=== PATIENT | female | born 1950 | race Caucasian/White ===

== ENCOUNTER → 2016-11-29 | Outpatient (CLI) | payer MEDICARE, OTHER ==
--- NOTE | 2016-11-29 15:59 | XR ---
EXAMINATION TYPE: XR chest 2V DATE OF EXAM: 11/29/2016 3:21 PM COMPARISON: Prior chest x-ray 01 Mar 2012 HISTORY: Cough TECHNIQUE: Frontal and lateral views of the chest are obtained. FINDINGS: Patient appears rotated. The heart is small. Pulmonary vascularity and reid are stable. Guzman rgical clips present in the upper abdomen. No evident pneumonia, pneumothorax, or pleural effusion. P rominent lung volume may be indicative of underlying COPD. Apical pleural thickening is noted. IMPRESSION: No acute cardiopulmonary process.
== END | disposition home or self-care (01) ==
LOC: RADXRMAIN 15:05
PROVIDERS: ATTEND Physician Assistant
DX: R05 Cough (principal)
CPT/HCPCS: 71020

== ENCOUNTER → 2017-01-22 | Outpatient (CLI) | payer MEDICARE, OTHER ==
--- NOTE | 2017-01-22 10:11 | US ---
EXAMINATION TYPE: US renals and bladder DATE OF EXAM: 01/22/2017 9:31 AM COMPARISON: CT abdomen and pelvis November 06, 2011. CLINICAL HISTORY: R33.9 urinary retention. Difficulty urinating, back pain, left nephrectomy 2006 (ca ncer) EXAM MEASUREMENTS: Right Kidney: 12.3 x 5.3 x 5.5 cm Left Kidney: Surgically absent Post Void Residual Volume: 13.3 mL Right Kidney: no evidence of hydronephrosis or mass Left Kidney: Surgically absent Bladder: appears wnl Bilateral Jets seen: Right jet seen Normal Post Void Residual: yes There is no evidence for hydronephrosis at this point in time in the remnant right kidney. No shadow ing nephrolithiasis is seen. No suspicious solid or cystic renal masses are identified. The urinary bladder is anechoic. Distal right ureter jet is seen. Scanning of left renal fossa shows no suspicio us recurrent mass or neoplasm. IMPRESSION: Absent left kidney redemonstrated. No suspicious finding is seen to account for patient's symptoms
--- NOTE | 2017-01-22 10:41 | ECHOF ---
Referral Reason:R00.00 tachycardia MEASUREMENTS -------- HEIGHT: 165.1 cm WEIGHT: 56.7 kg BP: IVSd: 1.0 cm (0.6 - 1.1) LVIDd: 3.6 cm (3.9 - 5.3) LVPWd: 0.9 cm (0.6 - 1.1) IVSs: 1.5 cm LVIDs: 1.5 cm LVPWs: 1.6 cm Ao Diam: 3.2 cm (2.0 - 3.7) AV Cusp: 1.7 cm (1.5 - 2.6) LA Diam: 3.3 cm (2.7 - 3.8) MV EXCURSION: 14.924 mm (> 18.000) MV EF SLOPE: 140 mm/s (70 - 150) EPSS: 0.8 cm MV E Bry: 0.75 m/s MV DecT: 254 ms MV A Bry: 0.91 m/s MV E/A Ratio: 0.83 RAP: 5.00 mmHg RVSP: 59.63 mmHg FINDINGS -------- Sinus rhythm with extra systolic beats. This was a technically good study. The left ventricular size is normal. Left ventricular wall thickness is normal. Overall left ventricular systolic function is normal with, an EF between 55 - 60 %. The right ventricle is normal in size and function. The left atrium is normal in size. The right atrium is normal in size. The aortic valve is trileaflet, and appears structurally normal. No aortic stenosis or regurgitation. The mitral valve leaflets are mildly thickened. [id number] mitral regurgitation is present. Moderate tricuspid regurgitation present. There is moderate pulmonary hypertension. The right ventricular systolic pressure, as measured by Doppler, is 59.63mmHg. There is no pulmonic regurgitation present. The aortic root size is normal. There is no pericardial effusion. CONCLUSIONS -------- 1. Sinus rhythm with extra systolic beats. 2. There is moderate pulmonary hypertension. 3. There is no pulmonic regurgitation present. 4. The aortic root size is normal. 5. There is no pericardial effusion. 6. This was a technically good study. 7. Left ventricular wall thickness is normal. 8. Overall left ventricular systolic function is normal with, an EF between 55 - 60 %. 9. The left atrium is normal in size. 10. The aortic valve is trileaflet, and appears structurally normal. No aortic stenosis or regurgitation. 11. The mitral valve leaflets are mildly thickened. 12. [id number] mitral regurgitation is present. 13. Moderate tricuspid regurgitation present. VEHICLE DAMAGE APPRAISER: Penny Sierra RDCS
== END | disposition home or self-care (01) ==
LOC: RADUSMAIN 09:01
PROVIDERS: ATTEND Family Medicine
DX: R33.9 Retention of urine, unspecified (principal); R00.0 Tachycardia, unspecified; Z90.5 Acquired absence of kidney
CPT/HCPCS: 76770; 93306

== ENCOUNTER → 2017-02-20 | Outpatient (CLI) | payer MEDICARE, OTHER ==
--- NOTE | 2017-02-20 21:28 | XR ---
EXAMINATION TYPE: XR lumbar spine 2 or 3V DATE OF EXAM: 02/20/2017 5:01 PM COMPARISON: NONE HISTORY: Low back pain TECHNIQUE: 3 view lumbar spine FINDINGS: There 5 lumbar-type bodies. Pedicles are intact. There is a grade 1 approaching grade 2 spo ndylolisthesis of L5 anteriorly on S1. There is loss of the L5-S1 disc height. Multiple surgical clip s are present. IMPRESSION: 1. Grade 1 to grade 2 spondylolisthesis of L5 anteriorly on S1. 2. Degenerative changes L5-S1
== END ==
LOC: RADXRMAIN 16:39
PROVIDERS: ATTEND Physician Assistant
DX: M43.16 Spondylolisthesis, lumbar region (principal); M47.897 Other spondylosis, lumbosacral region
CPT/HCPCS: 72100

== ENCOUNTER 2017-03-01 10:29 | Emergency (ER) | payer MEDICARE, OTHER ==
[2017-03-01 10:38] VITALS: RESP 18; TEMP 97.2
[2017-03-01 11:32] LABS: Basophils % (A) 0 %; CH 30.3; CHCM 32.8; Eosinophils # (A) 0.1 k/uL (0-0.7); Eosinophils % (A) 1 %; HCT 38.6 % (34.0-46.0); HDW 2.66; HGB 12.6 gm/dL (11.4-16.0); Luc # (Auto) 0.08; Luc % (Auto) 2; Lymphocytes # (A) 0.8 k/uL (1.0-4.8); Lymphocytes % (A) 14 %; MCH 30.4 pg (25.0-35.0); MCHC 32.7 g/dL (31.0-37.0); MCV 92.9 fL (80.0-100.0); Mean Platelet Volume 8.2; Monocytes # (A) 0.4 k/uL (0-1.0); Monocytes % (A) 8 %; Neutrophils # (A) 4.2 k/uL (1.3-7.7); Neutrophils % (A) 76 %; RBC 4.16 m/uL (3.80-5.40); RDW 15.2 % (11.5-15.5); WBC 5.5 k/uL (3.8-10.6); WBC (Perox) 5.27
[2017-03-01 11:50] LABS: Anion Gap 16 mmol/L; Blood Urea Nitrogen 10 mg/dL (7-17); Calcium 9.8 mg/dL (8.4-10.2); Carbon Dioxide 22 mmol/L (22-30); Chloride 94 mmol/L (98-107); Glucose 189 mg/dL (74-99); Non-African American GFR(MDRD) >60 (>60 ml/min/1.73 sqM); Potassium 4.4 mmol/L (3.5-5.1); Sodium 132 mmol/L (137-145)
--- NOTE | 2017-03-01 12:22 | ED ---
General Adult HPI - General Chief complaint: Urogenital Stated complaint: back pain Source: patient Mode of arrival: ambulatory Limitations: no limitations - History of Present Illness Initial comments: 66-year-old female with past medical history of renal cancer, DM, HLD , RA, breast surgery, section, hernia repair, orthopedic surgery, left nephrectomy, Raciel fundoplasty presenting for evaluation of right lower back pain and suprapubic abdominal pain with urinary retention. She states that she has had these symptoms since late November and that they have been present continuously since then. She has seen her primary care physician Dr. Wilson and her urologist Dr. Magallon who have evalauted her with renal US and lumbar xrays which have shown no cause for her continued symptoms. She states her symptoms are no worse now than they have been in the last few weeks. She describes the urinary retention as improving with straining and bearing down. Abdominal pain is only present when she hasn't urinated in a while and improves with voiding. She has tried OTC medications for her back pain without relief. She denies associated dysuria or hematuria. - Related Data Home Medications Medication Instructions Recorded Confirmed Methotrexate Sodium [Methotrexate] 15 mg PO MO 03/04/14 03/01/17 Multivitamins, Thera [Multivitamin] 1 tab PO DAILY 07/30/16 03/01/17 sitaGLIPtin [Januvia] 100 mg PO PC-SUPPER 07/30/16 03/01/17 Atorvastatin Calcium [Lipitor] 20 mg PO HS 03/01/17 03/01/17 Cyclobenzaprine [Flexeril] 10 mg PO TID PRN 03/01/17 03/01/17 metFORMIN HCL [metFORMIN HCL] 1,000 mg PO BID 03/01/17 03/01/17 Previous Rx's Medication Instructions Recorded HYDROcodone/APAP 5-325MG [[place] 1 - 2 tab PO Q6HR PRN #20 tab 03/01/17 5-325] Allergies Allergy/AdvReac Type Severity Reaction Status Date / Time No Known Allergies Allergy Verified 03/01/17 11:49 Review of Systems ROS Statement: Those systems with pertinent positive or pertinent negative responses have been documented in the HPI. ROS Other: All systems not noted in ROS Statement are negative. Constitutional: Denies: fever, chills Eyes: Denies: eye pain, eye discharge ENT: Denies: ear pain, throat pain Respiratory: Denies: cough, dyspnea Cardiovascular: Denies: chest pain, palpitations Endocrine: Denies: fatigue, heat or cold intolerance, polydipsia Gastrointestinal: Reports: abdominal pain. Denies: nausea, vomiting, diarrhea, constipation, hematemesis, melena, hematochezia Genitourinary: Reports: other (urinary retention). Denies: urgency, dysuria, frequency, hematuria, discharge Musculoskeletal: Reports: back pain. Denies: joint swelling, arthralgia, myalgia Skin: Denies: rash, lesions Neurological: Denies: headache, weakness Psychiatric: Denies: anxiety, depression Hematological/Lymphatic: Denies: easy bleeding, easy bruising Past Medical History Past Medical History: Cancer, Diabetes Mellitus, Hyperlipidemia, Rheumatoid Arthritis (RA) Additional Past Medical History / Comment(s): LEFT KIDNEY CANCER-2006 History of Any Multi-Drug Resistant Organisms: None Reported Past Surgical History: Breast Surgery, Section, Hernia Repair, Orthopedic Surgery Additional Past Surgical History / Comment(s): LEFT KIDNEY REMOVED,. RACIEL FUNDOPLASTY. RT BREAST BX. LT CTR. COLONOSCOPY. EGD Past Anesthesia/Blood Transfusion Reactions: No Reported Reaction, Motion Sickness Past Psychological History: No Psychological Hx Reported Smoking Status: Never smoker Past Alcohol Use History: None Reported Additional Past Alcohol Use History / Comment(s): QUIT SMOKING IN 1995, SMOKED FOR 29 YRS, 1PPD. Past Drug Use History: None Reported - Past Family History Father Family Medical History: Cancer Additional Family Medical History / Comment(s): Lung Brother(s) Family Medical History: Cancer Additional Family Medical History / Comment(s): Lung General Exam Limitations: no limitations General appearance: alert, in no apparent distress Head exam: Present: atraumatic, normocephalic, normal inspection Eye exam: Present: normal appearance, PERRL, EOMI. Absent: scleral icterus, conjunctival injection, periorbital swelling ENT exam: Present: normal exam, mucous membranes moist Neck exam: Present: normal inspection. Absent: tenderness, meningismus, lymphadenopathy Respiratory exam: Present: normal lung sounds bilaterally. Absent: respiratory distress, wheezes, rales, rhonchi, stridor Cardiovascular Exam: Present: regular rate, normal rhythm, normal heart sounds. Absent: systolic murmur, diastolic murmur, rubs, gallop, clicks GI/Abdominal exam: Present: soft, tenderness, normal bowel sounds, other ( Suprapubic abdominal tenderness). Absent: distended, guarding, rebound, rigid Rectal exam: Present: deferred Extremities exam: Present: normal inspection, full ROM, normal capillary refill. Absent: tenderness, pedal edema, joint swelling, calf tenderness Back exam: Present: full ROM, CVA tenderness (R), paraspinal tenderness. Absent : normal inspection, rash noted Neurological exam: Present: alert, oriented X3, CN II-XII intact Psychiatric exam: Present: normal affect, normal mood Skin exam: Present: warm, dry, intact, normal color. Absent: rash Course Vital Signs 03/01/17 03/01/17 10:34 14:11 Temperature 97.2 F L Pulse Rate 127 H 120 H Respiratory 18 18 Rate Blood Pressure 118/70 137/68 O2 Sat by Pulse 99 97 Oximetry Medical Decision Making - Medical Decision Making 66-year-old female with past medical history of left nephrectomy due to renal cancer presented for evaluation of right lower back pain and suprapubic abdominal pain due to urinary retention. She states she's been having these symptoms for the last 3 months, been worked up by both her urologist and primary care physician, and has had no significant changes since. She states her symptoms are no worse now than they have been over the last few weeks but she is just tired of the pain. On physical examination she does have tenderness to palpation on the right paraspinal lumbar back without radiation. There is no overlying skin changes. Bladder scan reveals 137 mL of urine. Only mild suprapubic tenderness but abdomen is soft without peritoneal signs of guarding, rigidity, or rebound. History and physical exam are not consistent with a kidney stone however concern for urinary tract infection versus urethral obstruction remains on differential. We'll obtain UA, labs, and CT abdomen and pelvis. 12:18 PM Discussed pt with urologist Dr. Magallon who was updated on the status of his pt and agreed with plan to work up and discharge if no significant abnormalities identified. Labs revealed no significant abnormalities. Urine was negative for hematuria or UTI. CT abdomen and pelvis with IV contrast showed new multi lobulated masses measuring up to 3.5 cm in the left nephrectomy surgical bed skin portions of the pancreas and creating abnormal pancreatic enhancement and peripancreatic fat stranding likely reactive pancreatitis. There are also new multiple hypoattenuated ill-defined hepatic lesions that may represent visceral metastasis. A 2.2 cm periumbilical soft tissue mass may correspond to additional sedative metastasis or lymphadenopathy. There is also mild prolapse of the pelvic floor with a small amount of pelvic free fluid. These findings were discussed with Dr. Wilson's PA who agreed with plan to discharge and follow up on Saturday in the office. Results discussed with the patient and through shared decision making it was determined that she would be discharged with pain control and instructions to follow-up with her primary care physician and that her PCPs PA had already been informed of results and would be expecting her on Saturday. She was further advised to return to this facility over the weekend if her symptoms should worsen or persist. The patient acknowledged an understanding of this information and agreed with this plan of care. - Lab Data Result diagrams: 03/01/17 11:20 03/01/17 11:20 Lab Results 03/01/17 03/01/17 03/01/17 Range/Units 11:20 11:20 12:36 WBC 5.5 (3.8-10.6) k/uL RBC 4.16 (3.80-5.40) m/uL Hgb 12.6 (11.4-16.0) gm/dL Hct 38.6 (34.0-46.0) % MCV 92.9 (80.0-100.0) fL MCH 30.4 (25.0-35.0) pg MCHC 32.7 (31.0-37.0) g/dL RDW 15.2 (11.5-15.5) % Plt Count 181 (150-450) k/uL Neutrophils % 76 % Lymphocytes % 14 % Monocytes % 8 % Eosinophils % 1 % Basophils % 0 % Neutrophils # 4.2 (1.3-7.7) k/uL Lymphocytes # 0.8 L (1.0-4.8) k/uL Monocytes # 0.4 (0-1.0) k/uL Eosinophils # 0.1 (0-0.7) k/uL Basophils # 0.0 (0-0.2) k/uL Sodium 132 L (137-145) mmol/L Potassium 4.4 (3.5-5.1) mmol/L Chloride 94 L (98-107) mmol/L Carbon Dioxide 22 (22-30) mmol/L Anion Gap 16 mmol/L BUN 10 (7-17) mg/dL Creatinine 0.70 (0.52-1.04) mg/dL Est GFR (MDRD) Af Amer >60 (>60 ml/min/1.73 sqM) Est GFR (MDRD) Non-Af >60 (>60 ml/min/1.73 sqM) Glucose 189 H (74-99) mg/dL Calcium 9.8 (8.4-10.2) mg/dL Urine Color Yellow Urine Appearance Clear (Clear) Urine pH 6.0 (5.0-8.0) Ur Specific [place] 1.007 (1.001-1.035) Urine Protein Trace H (Negative) Urine Glucose (UA) 1+ H (Negative) Urine Ketones Negative (Negative) Urine Blood Negative (Negative) Urine Nitrite Negative (Negative) Urine Bilirubin Negative (Negative) Urine Urobilinogen <2.0 (<2.0) mg/dL Ur Leukocyte Esterase Trace H (Negative) Urine WBC 2 (0-5) /hpf Ur Squamous Epith Cells <1 (0-4) /hpf Hyaline Casts 3 H (0-2) /lpf Urine Mucus Rare H (None) /hpf Disposition Clinical Impression: Intraabdominal mass, Urinary retention Disposition: HOME SELF-CARE Condition: Stable Additional Instructions: Please use medication as discussed. Please follow up with family doctor if symptoms have not improved over the next two days. Please return to the emergency room if your symptoms increase or worsen or for any other concerns. Prescriptions: HYDROcodone/APAP 5-325MG [[place] 5-325] 1 - 2 tab PO Q6HR PRN #20 tab PRN Reason: Analgesia Time of Disposition: 14:14
[2017-03-01] MEDS ORDERED: MORPHINE SULFATE 4 MG/ML SYRINGE IVP STA (12:23)
[2017-03-01] MEDS ORDERED: RX INFO: IV CONTRAST WAS GIVEN 1 EACH MISC MISCELLANE PRN (12:23)
[2017-03-01 13:22] LABS: Appearance,Urine Clear (Clear); Bilirubin,Urine Negative (Negative); Glucose,Urine (UA) 1+ (Negative); Ketones,Urine Negative (Negative); Leukocyte Esterase,Urine Trace (Negative); Mucus,Urine Rare /hpf; Nitrite,Urine Negative (Negative); Particle Count 1195; Protein,Urine Trace (Negative); Specific Gravity,Urine 1.007 (1.001-1.035); Squamous Epithelial Cell,Urine <1 /hpf (0-4); UA Billing (MACRO vs. MICRO) MICRO; Urobilinogen,Urine <2.0 mg/dL (<2.0); WBC,Urine 2 /hpf (0-5)
--- NOTE | 2017-03-01 13:34 | CT ---
EXAMINATION TYPE: CT abdomen pelvis w con DATE OF EXAM: 03/01/2017 1:05 PM HISTORY: Right-sided abdominal pain. History of left nephrectomy and adrenalectomy. TECHNIQUE: CT scan of the abdomen and pelvis is performed per protocol without intravenous contrast. COMPARISON: 04/25/2011 FINDINGS: LUNG BASES: Moderate centrilobular emphysematous changes are seen. No pleural effusion or focal conso lidation. Small hiatal hernia is present with surgical clips at the gastroesophageal junction. LIVER/GB: Multiple new hypoattenuated hepatic lesions are seen the most pronounced within segment 8 a t the hepatic dome measuring approximately 1.1 cm. This is not compatible with a simple cyst. Additio jessica other scattered hepatic hypodensities are seen in the subcapsular left hepatic lobe on image 13 of 94 in the subcapsular right hepatic lobe posteriorly on image 21 of 94, and along the gallbladder fossa. Additional subcapsular lesion is seen within the right hepatic lobe on image 18 of 94. Hepati c contour is smooth and there is no capsular retraction.. PANCREAS: No significant abnormality is seen. SPLEEN: Benign calcified splenic lesion is seen. ADRENALS: No significant abnormality is seen within the right adrenal gland. The left adrenal gland i s surgically absent. KIDNEYS: Within the left nephrectomy bed, obscuring the distal body and tail of the pancreas there is a new centrally necrotic mass measuring at least 2.5 x 2.3 cm. Superior to this there is also soft t issue attenuated density that measures up to 3.2 x 3.5 cm and also obscures portions of the pancreas. There is abnormal enhancement of the distal pancreatic body and tail with surrounding inflammatory f at stranding. These findings are new from the prior exam of 04/25/2011. Stable right midpole posterior cortical lesion is similar in appearance the prior exam of 04/25/2011 a nd favored to be benign although too small to accurately characterize. Additional smaller cortically based lesion is also similar in appearance to the prior exam. BOWEL: No significant abnormality is seen. Tubular focus of air is thought to reside within a small bowel loop. Sigmoid diverticula are evident without pericolonic fat stranding or changes of diverticu litis. UTERUS/ADNEXA: No gross abnormality seen. LYMPH NODES: No greater than 1cm abdominal or pelvic lymph nodes are appreciated. OSSEOUS STRUCTURES: No suspicious osseous lesion is seen. Mild S-shaped scoliotic curvature of the th oracolumbar spine is noted. Degenerative changes are present of the thoracolumbar and lumbosacral spi ne. OTHER: 2.2 cm periumbilical soft tissue mass is noted, possibly site of metastasis and/or lymphadenop athy. Mild pelvic floor prolapse is noted. Findings were discussed with Dr. Davis (ER physician) at 1322 PM on 03/01/2017. IMPRESSION: 1. New multilobulated mass measuring up to 3.5 cm in the left nephrectomy surgical bed obscuring port ions of the pancreas and creating abnormal pancreatic enhancement and peripancreatic fat stranding li breonna reactive pancreatitis. 2. Multiple new hypoattenuated ill-defined hepatic lesions that may represent visceral metastasis. Fu rther characterization with dynamic enhanced CT or MR could be performed if clinically indicated. 3. Small hiatal hernia. 5. 2.2 cm periumbilical soft tissue mass that may correspond to additional site of metastasis and/or lymphadenopathy. 6. Stable probable right cortical renal cysts. 7. Tubular central air favored to be within bowel lumen although the bowel is decompressed. 8. Small amount of pelvic free fluid. 9. Mild prolapse of the pelvic floor. 10. Partial visualization of moderate emphysematous changes.
[2017-03-01 14:11] VITALS: BP 137/68; PULSE 120
== END 2017-03-01 14:27 | disposition home or self-care (01) ==
LOC: EC 10:29
DX: R19.05 Periumbilic swelling, mass or lump (principal); R33.9 Retention of urine, unspecified; E11.9 Type 2 diabetes mellitus without complications; E78.5 Hyperlipidemia, unspecified; M06.9 Rheumatoid arthritis, unspecified; Z87.891 Personal history of nicotine dependence; Z79.899 Other long term (current) drug therapy; Z79.84 Long term (current) use of oral hypoglycemic drugs; Z85.528 Personal history of other malignant neoplasm of kidney; Z80.1 Family history of malignant neoplasm of trachea, bronchus and lung; Z90.5 Acquired absence of kidney
CPT/HCPCS: 51798; 36415; 80048; 85025; 81001; 74177; 99284; 96374; J2270; Q9967

== ENCOUNTER → 2017-03-12 | Outpatient (CLI) | payer MEDICARE, OTHER ==
[2017-03-12 11:46] LABS: Blood Urea Nitrogen 13 mg/dL (7-17); Non-African American GFR(MDRD) >60 (>60 ml/min/1.73 sqM)
--- NOTE | 2017-03-12 12:39 | CT ---
EXAMINATION TYPE: CT chest w con DATE OF EXAM: 03/12/2017 12:32 PM COMPARISON: CT abdomen pelvis 03/01/2017 HISTORY: Patient had recent abnormal prior CT of the abdomen showing liver lesions. Patient has no c hest complaints at time of study. CT DLP: 127.4 mGycm Automated exposure control for dose reduction was used. CONTRAST: CT scan of the chest is performed with IV Contrast, patient injected with 80 mL of Visipaque 320. FINDINGS: LUNGS: The lungs are grossly clear, there is no concerning parenchymal mass or nodule identified. M oderate emphysematous changes identified. There is no pleural effusion or pneumothorax seen. The tra cheobronchial tree is patent. MEDIASTINUM: There are no greater than 1 cm hilar or mediastinal lymph nodes. No pericardial effusi on is seen. Thoracic aorta is of normal caliber. The heart is not enlarged. UPPER ABDOMEN: Soft tissue mass arising from the previous or adjacent pancreas is again noted. Severa l hepatic lesion suspicious for metastatic disease. Left-sided. OTHER: No additional significant abnormality is seen. IMPRESSION: 1. Moderate emphysematous changes. No evidence of metastatic disease to the chest.
--- NOTE | 2017-03-12 15:36 | NM ---
EXAMINATION TYPE: NM bone scan whole body DATE OF EXAM: 03/12/2017 2:56 PM COMPARISON: NONE HISTORY: C78.7 liver ca Delayed whole-body scanning was performed following the injection of 25.8 mCi Tc 99m MDP. Images acq uired 3 hours post injection. FINDINGS: There is intense increased radiotracer accumulation noted to involve the proximal left TMJ or left ma stoid region and the left mid cervical spine which are nonspecific. Radiographic correlation is advis ed. There is focal increased uptake involving the right sternal manubrial joint as well as the bilate ral shoulders are likely degenerative in nature. There is mild degenerative uptake about the thoracic spine and lower lumbar spine. Mild degenerative uptake about the hips. No additional intense foci of increased radiotracer accumulation. IMPRESSION: There is intense increased radiotracer accumulation noted to involve the proximal left TMJ or left ma stoid region and the left mid cervical spine which are nonspecific. Radiographic correlation is advis ed.
== END | disposition home or self-care (01) ==
LOC: RADNMMAIN 10:36
PROVIDERS: ATTEND Internal Medicine Hematology & Oncology
DX: J43.9 Emphysema, unspecified (principal); R94.8 Abnormal results of function studies of other organs and systems; C78.7 Secondary malignant neoplasm of liver and intrahepatic bile duct
CPT/HCPCS: 82565; 84520; 71260; 36415; 78306; A9503; Q9967

== ENCOUNTER 2017-03-31 00:06 | Inpatient (IN) | payer MEDICARE, OTHER ==
[2017-03-31] MEDS ORDERED: DILTIAZEM 125 MG in SODIUM CHLORIDE 0.9% 100 ML IV STA (00:30)
[2017-03-31] MEDS ORDERED: SODIUM CHLORIDE 0.9% 1,000 ML IV ONE ×2 (00:40→02:00)
[2017-03-31] MEDS ORDERED: MORPHINE SULFATE 4 MG/ML SYRINGE IV STA (00:41)
[2017-03-31] MEDS ORDERED: ONDANSETRON 4 MG/2 ML VIAL IVP STA (00:41)
--- NOTE | 2017-03-31 00:50 | ED ---
General Adult HPI - General Chief complaint: Recheck/Abnormal Lab/Rx Stated complaint: low BP Time Seen by Provider: 03/31/17 00:30 Source: patient, family Mode of arrival: wheelchair Limitations: no limitations - History of Present Illness Initial comments: This patient is a 67-year-old woman who presents with the complaint that she is not feeling well, including a number of symptoms. She states that she has been having increasing abdominal pain and believes that this is related to the cancer that she was diagnosed with an February. She states that she was diagnosed with pancreatic cancer then. The patient also feels like she needs to have a bowel movement but has not been able to hold bowel movement since a small one this morning and she does continue to pass flatus. The patient is complaining of nausea and has not been able to take much in way of fluids or any food today. She also feels extremely weak and fatigued and believes she is getting dehydrated. Patient has not noted a fever. She is a little bit short of breath but denies change in cough or chest pain. She has noted some palpitations and has felt lightheaded but no syncope. -: days(s) Location: abdomen - Related Data Home Medications Medication Instructions Recorded Confirmed Methotrexate Sodium [Methotrexate] 15 mg PO MO 03/04/14 03/01/17 Multivitamins, Thera [Multivitamin] 1 tab PO DAILY 07/30/16 03/01/17 sitaGLIPtin [Januvia] 100 mg PO PC-SUPPER 07/30/16 03/01/17 Atorvastatin Calcium [Lipitor] 20 mg PO HS 03/01/17 03/01/17 Cyclobenzaprine [Flexeril] 10 mg PO TID PRN 03/01/17 03/01/17 metFORMIN HCL [metFORMIN HCL] 1,000 mg PO BID 03/01/17 03/01/17 Previous Rx's Medication Instructions Recorded HYDROcodone/APAP 5-325MG [[place] 1 - 2 tab PO Q6HR PRN #20 tab 03/01/17 5-325] Allergies Allergy/AdvReac Type Severity Reaction Status Date / Time No Known Allergies Allergy Verified 03/01/17 11:49 Review of Systems ROS Statement: Those systems with pertinent positive or pertinent negative responses have been documented in the HPI. ROS Other: All systems not noted in ROS Statement are negative. Constitutional: Denies: fever Respiratory: Reports: dyspnea. Denies: cough, wheezes Cardiovascular: Reports: palpitations. Denies: chest pain, orthopnea, edema, syncope Gastrointestinal: Reports: abdominal pain, nausea, diarrhea, constipation. Denies: vomiting, melena, hematochezia Genitourinary: Denies: dysuria, hematuria Musculoskeletal: Denies: back pain Skin: Denies: rash Neurological: Denies: headache, weakness, numbness Past Medical History Past Medical History: Cancer, Diabetes Mellitus, Hyperlipidemia, Rheumatoid Arthritis (RA) Additional Past Medical History / Comment(s): LEFT KIDNEY CANCER-2006 History of Any Multi-Drug Resistant Organisms: None Reported Past Surgical History: Breast Surgery, Section, Hernia Repair, Orthopedic Surgery Additional Past Surgical History / Comment(s): LEFT KIDNEY REMOVED,. RACIEL FUNDOPLASTY. RT BREAST BX. LT CTR. COLONOSCOPY. EGD Past Anesthesia/Blood Transfusion Reactions: No Reported Reaction, Motion Sickness Past Psychological History: No Psychological Hx Reported Smoking Status: Never smoker Past Alcohol Use History: None Reported Additional Past Alcohol Use History / Comment(s): QUIT SMOKING IN 1995, SMOKED FOR 29 YRS, 1PPD. Past Drug Use History: None Reported - Past Family History Father Family Medical History: Cancer Additional Family Medical History / Comment(s): Lung Brother(s) Family Medical History: Cancer Additional Family Medical History / Comment(s): Lung General Exam Limitations: no limitations General appearance: alert, cachectic, other (Jaundiced) Head exam: Present: atraumatic, normocephalic Eye exam: Present: normal appearance, scleral icterus. Absent: conjunctival injection ENT exam: Present: mucous membranes dry Neck exam: Present: normal inspection, full ROM Respiratory exam: Present: normal lung sounds bilaterally. Absent: respiratory distress, wheezes, rales, rhonchi, stridor Cardiovascular Exam: Present: tachycardia, irregular rhythm, normal heart sounds. Absent: systolic murmur, diastolic murmur, rubs, gallop GI/Abdominal exam: Present: soft, tenderness, guarding, diminished bowel sounds. Absent: distended, rebound, rigid, mass, pulsatile mass, hernia Extremities exam: Present: normal inspection, normal capillary refill. Absent: pedal edema, calf tenderness Back exam: Present: normal inspection. Absent: CVA tenderness (R), CVA tenderness (L) Neurological exam: Present: alert Skin exam: Present: warm, dry, intact, other (jaundiced). Absent: rash Course Vital Signs 03/31/17 03/31/17 03/31/17 00:08 00:30 00:32 Temperature 97.5 F L Pulse Rate 123 H 146 H 149 H Pulse Rate [ Right Pulse Oximetery] Respiratory 18 20 20 Rate Blood Pressure 83/52 115/63 115/63 Blood Pressure [Left Arm Supine] O2 Sat by Pulse 98 99 97 Oximetry 03/31/17 03/31/17 03/31/17 00:56 01:02 01:05 Temperature Pulse Rate 123 H 137 H 129 H Pulse Rate [ Right Pulse Oximetery] Respiratory 20 20 20 Rate Blood Pressure 115/66 105/55 125/57 Blood Pressure [Left Arm Supine] O2 Sat by Pulse 96 92 L 99 Oximetry 03/31/17 03/31/17 03/31/17 01:15 01:27 01:42 Temperature Pulse Rate 63 90 74 Pulse Rate [ Right Pulse Oximetery] Respiratory 20 18 18 Rate Blood Pressure 94/46 89/53 84/47 Blood Pressure [Left Arm Supine] O2 Sat by Pulse 100 98 100 Oximetry 03/31/17 03/31/17 03/31/17 02:27 03:21 03:31 Temperature 98.4 F 97.1 F L Pulse Rate 75 114 H Pulse Rate [ 88 Right Pulse Oximetery] Respiratory 18 18 18 Rate Blood Pressure 131/57 113/79 Blood Pressure 128/60 [Left Arm Supine] O2 Sat by Pulse 100 94 L 100 Oximetry 03/31/17 03/31/17 03:56 04:33 Temperature Pulse Rate 101 H 100 Pulse Rate [ Right Pulse Oximetery] Respiratory 18 18 Rate Blood Pressure 116/56 136/57 Blood Pressure [Left Arm Supine] O2 Sat by Pulse 98 93 L Oximetry EKG Findings - EKG Results: EKG: interpreted by ERMD, normal axis, normal QRS, normal ST/T EKG shows: tachycardia (Rate approximately 151 bpm), atrial fibrillation Medical Decision Making - Medical Decision Making Case discussed with Dr. Mims who is covering for [facility]. The patient will be admitted with broad-spectrum coverage for the sepsis and the pancytopenia. Consults also requested for infectious disease, surgery, and will have cardiology consultation for what appears to be new onset atrial fibrillation with rapid ventricular rate. Neupogen also started. - Lab Data Result diagrams: 03/31/17 00:22 03/31/17 00:22 Lab Results 03/31/17 03/31/17 03/31/17 Range/Units 00:22 00:22 00:22 WBC 0.7 L* (3.8-10.6) k/uL RBC 2.93 L (3.80-5.40) m/uL Hgb 9.2 L D (11.4-16.0) gm/dL Hct 26.5 L (34.0-46.0) % MCV 90.3 (80.0-100.0) fL MCH 31.5 (25.0-35.0) pg MCHC 34.9 (31.0-37.0) g/dL RDW 16.9 H (11.5-15.5) % Plt Count 70 L D (150-450) k/uL Differential Comment Manual Slide Review Performed Large Platelets Present Poikilocytosis (manual Present Anisocytosis Slight Target Cells Present PT (9.0-12.0) sec INR (<1.1) APTT (22.0-30.0) sec Sodium 129 L (137-145) mmol/L Potassium 4.5 (3.5-5.1) mmol/L Chloride 94 L (98-107) mmol/L Carbon Dioxide 20 L (22-30) mmol/L Anion Gap 15 mmol/L BUN 18 H (7-17) mg/dL Creatinine 0.80 (0.52-1.04) mg/dL Est GFR (MDRD) Af Amer >60 (>60 ml/min/1.73 sqM) Est GFR (MDRD) Non-Af >60 (>60 ml/min/1.73 sqM) Glucose 164 H (74-99) mg/dL POC Glucose (mg/dL) (75-99) mg/dL POC Glu Multiskill Operator ID Plasma Lactic Acid Gaurav (0.7-2.0) mmol/L Calcium 8.4 (8.4-10.2) mg/dL Magnesium 1.8 (1.6-2.3) mg/dL Total Bilirubin 17.6 H* (0.2-1.3) mg/dL AST 979 H (14-36) U/L ALT 423 H (9-52) U/L Alkaline Phosphatase 746 H (38-126) U/L Total Creatine Kinase 41 (30-135) U/L CK-MB (CK-2) 0.3 (0.0-2.4) ng/mL CK-MB (CK-2) Rel Index 0.7 Troponin I <0.012 (0.000-0.034) ng/mL Total Protein 5.6 L (6.3-8.2) g/dL Albumin 2.9 L (3.5-5.0) g/dL Amylase (30-110) U/L Lipase (23-300) U/L TSH 0.077 L (0.465-4.680) mIU/L Urine Color Urine Appearance (Clear) Urine pH (5.0-8.0) Ur Specific [place] (1.001-1.035) Urine Protein (Negative) Urine Glucose (UA) (Negative) Urine Ketones (Negative) Urine Blood (Negative) Urine Nitrite (Negative) Urine Bilirubin (Negative) Urine Urobilinogen (<2.0) mg/dL Ur Leukocyte Esterase (Negative) Urine RBC (0-5) /hpf Urine WBC (0-5) /hpf Ur Squamous Epith Cells (0-4) /hpf Amorphous Sediment (None) /hpf Urine Bacteria (None) /hpf Urine Mucus (None) /hpf 03/31/17 03/31/17 03/31/17 Range/Units 00:22 00:22 00:22 WBC (3.8-10.6) k/uL RBC (3.80-5.40) m/uL Hgb (11.4-16.0) gm/dL Hct (34.0-46.0) % MCV (80.0-100.0) fL MCH (25.0-35.0) pg MCHC (31.0-37.0) g/dL RDW (11.5-15.5) % Plt Count (150-450) k/uL Differential Comment Manual Slide Review Large Platelets Poikilocytosis (manual Anisocytosis Target Cells PT 16.4 H (9.0-12.0) sec INR 1.7 (<1.1) APTT 33.4 H (22.0-30.0) sec Sodium (137-145) mmol/L Potassium (3.5-5.1) mmol/L Chloride (98-107) mmol/L Carbon Dioxide (22-30) mmol/L Anion Gap mmol/L BUN (7-17) mg/dL Creatinine (0.52-1.04) mg/dL Est GFR (MDRD) Af Amer (>60 ml/min/1.73 sqM) Est GFR (MDRD) Non-Af (>60 ml/min/1.73 sqM) Glucose (74-99) mg/dL POC Glucose (mg/dL) (75-99) mg/dL POC Glu Multiskill Operator ID Plasma Lactic Acid Gaurav 2.5 H* (0.7-2.0) mmol/L Calcium (8.4-10.2) mg/dL Magnesium (1.6-2.3) mg/dL Total Bilirubin (0.2-1.3) mg/dL AST (14-36) U/L ALT (9-52) U/L Alkaline Phosphatase (38-126) U/L Total Creatine Kinase (30-135) U/L CK-MB (CK-2) (0.0-2.4) ng/mL CK-MB (CK-2) Rel Index Troponin I (0.000-0.034) ng/mL Total Protein (6.3-8.2) g/dL Albumin (3.5-5.0) g/dL Amylase 66 (30-110) U/L Lipase 188 (23-300) U/L TSH (0.465-4.680) mIU/L Urine Color Urine Appearance (Clear) Urine pH (5.0-8.0) Ur Specific [place] (1.001-1.035) Urine Protein (Negative) Urine Glucose (UA) (Negative) Urine Ketones (Negative) Urine Blood (Negative) Urine Nitrite (Negative) Urine Bilirubin (Negative) Urine Urobilinogen (<2.0) mg/dL Ur Leukocyte Esterase (Negative) Urine RBC (0-5) /hpf Urine WBC (0-5) /hpf Ur Squamous Epith Cells (0-4) /hpf Amorphous Sediment (None) /hpf Urine Bacteria (None) /hpf Urine Mucus (None) /hpf 03/31/17 03/31/17 03/31/17 Range/Units 02:13 04:00 06:07 WBC (3.8-10.6) k/uL RBC (3.80-5.40) m/uL Hgb (11.4-16.0) gm/dL Hct (34.0-46.0) % MCV (80.0-100.0) fL MCH (25.0-35.0) pg MCHC (31.0-37.0) g/dL RDW (11.5-15.5) % Plt Count (150-450) k/uL Differential Comment Manual Slide Review Large Platelets Poikilocytosis (manual Anisocytosis Target Cells PT (9.0-12.0) sec INR (<1.1) APTT (22.0-30.0) sec Sodium (137-145) mmol/L Potassium (3.5-5.1) mmol/L Chloride (98-107) mmol/L Carbon Dioxide (22-30) mmol/L Anion Gap mmol/L BUN (7-17) mg/dL Creatinine (0.52-1.04) mg/dL Est GFR (MDRD) Af Amer (>60 ml/min/1.73 sqM) Est GFR (MDRD) Non-Af (>60 ml/min/1.73 sqM) Glucose (74-99) mg/dL POC Glucose (mg/dL) 183 H (75-99) mg/dL POC Glu Multiskill Operator ID Linda Nieto Plasma Lactic Acid Gaurav 1.1 (0.7-2.0) mmol/L Calcium (8.4-10.2) mg/dL Magnesium (1.6-2.3) mg/dL Total Bilirubin (0.2-1.3) mg/dL AST (14-36) U/L ALT (9-52) U/L Alkaline Phosphatase (38-126) U/L Total Creatine Kinase (30-135) U/L CK-MB (CK-2) (0.0-2.4) ng/mL CK-MB (CK-2) Rel Index Troponin I (0.000-0.034) ng/mL Total Protein (6.3-8.2) g/dL Albumin (3.5-5.0) g/dL Amylase (30-110) U/L Lipase (23-300) U/L TSH (0.465-4.680) mIU/L Urine Color Dark Brown Urine Appearance Cloudy H (Clear) Urine pH 6.0 (5.0-8.0) Ur Specific [place] 1.014 (1.001-1.035) Urine Protein 2+ H (Negative) Urine Glucose (UA) Negative (Negative) Urine Ketones Negative (Negative) Urine Blood Small H (Negative) Urine Nitrite Negative (Negative) Urine Bilirubin 4+ H (Negative) Urine Urobilinogen <2.0 (<2.0) mg/dL Ur Leukocyte Esterase Negative (Negative) Urine RBC 1 (0-5) /hpf Urine WBC 5 (0-5) /hpf Ur Squamous Epith Cells <1 (0-4) /hpf Amorphous Sediment Occasional H (None) /hpf Urine Bacteria Rare H (None) /hpf Urine Mucus Rare H (None) /hpf Critical Care Time Critical Care Time: Yes (40 minutes.) Disposition Clinical Impression: Pancytopenia, Atrial fibrillation with rapid ventricular response, Sepsis, Jaundice, Hyponatremia, Elevated transaminase level Disposition: ADMITTED IP TO THIS HOSP Condition: Serious Referrals: Tonio Wilson MD [Primary Care Provider] - 1-2 days
[2017-03-31 00:51] LABS: ALT 423 U/L (9-52); Alkaline Phosphatase 746 U/L (38-126); Anion Gap 15 mmol/L; Blood Urea Nitrogen 18 mg/dL (7-17); Calcium 8.4 mg/dL (8.4-10.2); Carbon Dioxide 20 mmol/L (22-30); Chloride 94 mmol/L (98-107); Glucose 164 mg/dL (74-99); Magnesium 1.8 mg/dL (1.6-2.3); Non-African American GFR(MDRD) >60 (>60 ml/min/1.73 sqM); Potassium 4.5 mmol/L (3.5-5.1); Sodium 129 mmol/L (137-145); Total Protein 5.6 g/dL (6.3-8.2)
[2017-03-31 00:55] LABS: Anisocytosis Slight; CH 30.7; CHCM 34.2; HCT 26.5 % (34.0-46.0); MCH 31.5 pg (25.0-35.0); MCHC 34.9 g/dL (31.0-37.0); MCV 90.3 fL (80.0-100.0); Mean Platelet Volume 10.5; RBC 2.93 m/uL (3.80-5.40); RDW 16.9 % (11.5-15.5); WBC (Perox) 1.04
[2017-03-31 01:00] LABS: AST 979 U/L (14-36); Total Bilirubin 17.6 mg/dL (0.2-1.3)
[2017-03-31 01:01] LABS: Creatine Kinase 41 U/L (30-135)
[2017-03-31 01:07] LABS: HGB 9.2 gm/dL (11.4-16.0); WBC 0.7 k/uL (3.8-10.6)
[2017-03-31 01:08] LABS: Add Differential Manual Differential
[2017-03-31 01:09] LABS: Target Cells Present
[2017-03-31 01:10] LABS: Large Platelets Present
[2017-03-31 01:14] LABS: Creatine Kinase MB 0.3 ng/mL (0.0-2.4); Troponin I <0.012 ng/mL (0.000-0.034)
[2017-03-31 01:16] LABS: Manual Review Performed
[2017-03-31 01:48] LABS: INR 1.7 (<1.1); Partial Thromboplastin Time 33.4 sec (22.0-30.0); Prothrombin Time 16.4 sec (9.0-12.0)
--- NOTE | 2017-03-31 01:52 | XR ---
EXAM: Single view of the chest. INDICATION: 59-year-old female with dysrhythmia. COMPARISON: Chest radiograph 11/29/2016. FINDINGS: Single frontal view demonstrates a stable cardiomediastinal silhouette with aorta partially calcified. The lungs are clear. No focal consolidation, pneumothorax, or pleural effusions. The visualized osseous structures are unremarkable. IMPRESSION: No acute cardiopulmonary disease.
[2017-03-31] MEDS ORDERED: PIPERACILLIN-TAZOBACTAM 3.375 GM in DEXTROSE/WATER 1 50ML.BAG IVPB STA (01:58)
[2017-03-31] MEDS: SODIUM CHLORIDE 0.9% 1,000 ML IV SCH ×4 (02:01→16:54)
--- NOTE | 2017-03-31 02:21 | CT ---
EXAM: CT ABDOMEN + PELVIS Without Contrast INDICATION: 67-year-old female with history of pancreatic and liver cancer, pain. COMPARISON: CT of the abdomen and pelvis 03/01/2017. TECHNIQUE: Multiple axial CT images of the abdomen and pelvis without contrast material. Reformatted coronal and sagittal submitted. DOSE: CTDI is 5.40 mGy and DLP is 277.40 mGy-cm. DOSE REDUCTION: This CT exam was performed using one or more of the following dose reduction techniques: automated exposure control, adjustment of the mA and/or kV according to patient size, and/or use of iterative reconstruction technique. FINDINGS: Lung bases: Emphysematous changes in both lungs. Solid organs: The liver shows mild intrahepatic biliary duct dilatation, not significantly changed compared prior examination given differences in technique. Hypodense lesions in the liver are better seen on prior examination. Calcified granuloma in the spleen. Necrotic, well-defined mass in the region of the surgical clips at the left nephrectomy bed and pancreatic tail region, unchanged compared to prior examination given differences in technique. There is moderate right hydronephrosis which has developed since prior. No radiopaque renal calculi are present in the right kidney or ureter. Otherwise, stable appearance of the right kidney. GI tract: There is diffuse colonic wall thickening and adjacent mesenteric edema suggesting pancolitis. Scattered sigmoid diverticulosis. No free intraperitoneal air. Stomach and small bowel are normal caliber. Lymph nodes: Stable mesenteric and omental nodularity with soft tissue nodule in the umbilical region, as before. Vascular: Dense calcific atherosclerosis of the abdominal aorta and iliac branches without aneurysm. Musculoskeletal: Osseous structures appear stable. No aggressive appearing osseous lesion or evidence of compression fracture. Pelvic contents: Interval increased fluid in the pelvis with more focal fluid collection in the cul-de-sac measuring 4.2 x 9.3 x 4.5 cm concerning for loculated pelvic ascites. Sterility of this fluid collection is indeterminate. Urinary bladder is partially distended. No pelvic adenopathy. Appendix is within normal limits. IMPRESSION: 1. Stable ill-defined lobulated mass in the left nephrectomy surgical bed and pancreatic tail region. 2. Hypoattenuating ill-defined hepatic lesions are better seen on prior examination given lack of IV contrast material. 3. Interval development of diffuse colonic wall thickening suggesting infectious or inflammatory colitis. 4. Moderate right hydroureteronephrosis. This is of unclear etiology, but is new since comparison. No radiopaque obstructing calculi are identified. 5. Stable mesenteric and umbilical soft tissue nodules. This is worrisome for peritoneal carcinomatosis. 6. 4.2 x 9.3 x 4.5 cm fluid collection in the pelvis concerning for loculated pelvic ascites. Sterility of this fluid is indeterminate. 7. Small hiatal hernia.
[2017-03-31 02:51] LABS: Amorphous Sediment,Urine Occasional /hpf; Appearance,Urine Cloudy (Clear); Bacteria,Urine Rare /hpf; Bilirubin,Urine 4+ (Negative); Glucose,Urine (UA) Negative (Negative); Ketones,Urine Negative (Negative); Leukocyte Esterase,Urine Negative (Negative); Mucus,Urine Rare /hpf; Nitrite,Urine Negative (Negative); Particle Count 14594; Protein,Urine 2+ (Negative); RBC,Urine 1 /hpf (0-5); Specific Gravity,Urine 1.014 (1.001-1.035); Squamous Epithelial Cell,Urine <1 /hpf (0-4); UA Billing (MACRO vs. MICRO) MICRO; Urobilinogen,Urine <2.0 mg/dL (<2.0); WBC,Urine 5 /hpf (0-5)
[2017-03-31] MEDS ORDERED: NALOXONE 0.4 MG/ML 1 ML VIAL IV PRN (02:55)
[2017-03-31] MEDS ORDERED: ACETAMINOPHEN TAB 325 MG TAB PO PRN (02:55)
[2017-03-31] MEDS ORDERED: PROCHLORPERAZINE 5 MG TAB PO PRN (02:55)
[2017-03-31] MEDS ORDERED: ONDANSETRON 4 MG/2 ML VIAL IVP PRN (02:55)
[2017-03-31] MEDS ORDERED: metroNIDAZOLE-NS PMX 500 MG in SALINE 1 100ML.BAG IVPB STA (03:07)
[2017-03-31] MEDS ORDERED: IV VANCOMYCIN PER PHARMACY 1 EACH MISC MISCELLANE PRN (03:07)
[2017-03-31] MEDS ORDERED: PIPERACILLIN-TAZOBACTAM 3.375 GM in DEXTROSE/WATER 1 50ML.BAG IVPB SCH (03:15)
[2017-03-31] MEDS ORDERED: diphenhydrAMINE 50 MG/ML 1 ML VIAL IVP SCH (03:15)
[2017-03-31 03:24] LABS: Amylase 66 U/L (30-110)
[2017-03-31] MEDS: MORPHINE SULFATE 4 MG/ML SYRINGE IV PRN ×5 (03:51→21:58)
[2017-03-31] MEDS: metroNIDAZOLE-NS PMX 500 MG in SALINE 1 100ML.BAG IVPB SCH ×3 (03:54→19:23)
[2017-03-31 05:16] VITALS: BMI 18.3
[2017-03-31 06:09] LABS: Glucose,Whole Blood 183 mg/dL (75-99)
[2017-03-31] MEDS: VANCOMYCIN 1,000 MG in SODIUM CHLORIDE 0.9% 250 ML IVPB SCH ×2 (08:32→22:00)
--- NOTE | 2017-03-31 10:06 | P.GSCN ---
History of Present Illness Consult date: 03/31/17 History of present illness: The patient is a 67-year-old female who underwent chemo on . She came into the emergency department because she was not feeling well. She is having increasing abdominal discomfort and weakness. Lab and CT were done. The CT showed some diffuse colitis. She's been taking a stool softener and having about 1 soft brown bowel movement a day. Blood in the stools or dark tarry stools. She does have known metastatic cancer. Review of Systems All systems: negative Past Medical History Past Medical History: Cancer, Diabetes Mellitus, Hyperlipidemia, Rheumatoid Arthritis (RA) Additional Past Medical History / Comment(s): Pancreatic cancer, LEFT KIDNEY CANCER-2006 History of Any Multi-Drug Resistant Organisms: None Reported Past Surgical History: Breast Surgery, Section, Hernia Repair, Orthopedic Surgery Additional Past Surgical History / Comment(s): LEFT KIDNEY REMOVED,. RACIEL FUNDOPLASTY. RT BREAST BX. LT CTR. COLONOSCOPY. EGD Past Anesthesia/Blood Transfusion Reactions: No Reported Reaction, Motion Sickness Past Psychological History: No Psychological Hx Reported Smoking Status: Never smoker Past Alcohol Use History: None Reported Additional Past Alcohol Use History / Comment(s): QUIT SMOKING IN 1995, SMOKED FOR 29 YRS, 1PPD. Past Drug Use History: None Reported - Past Family History Father Family Medical History: Cancer Additional Family Medical History / Comment(s): Lung Brother(s) Family Medical History: Cancer Additional Family Medical History / Comment(s): Lung Medications and Allergies Home Medications Medication Instructions Recorded Confirmed Type Methotrexate Sodium [Methotrexate] 15 mg PO MO 03/04/14 03/01/17 History Multivitamins, Thera [Multivitamin] 1 tab PO DAILY 07/30/16 03/01/17 History sitaGLIPtin [Januvia] 100 mg PO PC-SUPPER 07/30/16 03/01/17 History Atorvastatin Calcium [Lipitor] 20 mg PO HS 03/01/17 03/01/17 History Cyclobenzaprine [Flexeril] 10 mg PO TID PRN 03/01/17 03/01/17 History metFORMIN HCL [metFORMIN HCL] 1,000 mg PO BID 03/01/17 03/01/17 History Allergies Allergy/AdvReac Type Severity Reaction Status Date / Time No Known Allergies Allergy Verified 03/01/17 11:49 Surgical - Exam Osteopathic Statement: *. No significant issues noted on an osteopathic structural exam other than those noted in the History and Physical/Consult. Vital Signs Temp Pulse Resp BP Pulse Ox 97.5 F L 123 H 18 83/52 98 03/31/17 00:08 03/31/17 00:08 03/31/17 00:08 03/31/17 00:08 03/31/17 00:08 - General no distress, chronically ill - Eyes normal ocular movement - Neck trachea midline - Respiratory normal respiratory effort, clear to auscultation (Decreased breath sounds at the bases) - Cardiovascular Rhythm: irregularly irregular - Abdomen Abdomen is firm Abdomen: soft, tender (Left lower quadrant and suprapubic), bowel sounds ( Hypoactive) - Integumentary Dark icterus - Psychiatric oriented to time, oriented to person, oriented to place, speech is normal, memory intact Results - Labs 03/31/17 00:22 03/31/17 00:22 Abnormal Lab Results - Last 24 Hours (Table) 03/31/17 03/31/17 03/31/17 Range/Units 00:22 00:22 00:22 WBC 0.7 L* (3.8-10.6) k/uL RBC 2.93 L (3.80-5.40) m/uL Hgb 9.2 L D (11.4-16.0) gm/dL Hct 26.5 L (34.0-46.0) % RDW 16.9 H (11.5-15.5) % Plt Count 70 L D (150-450) k/uL PT 16.4 H (9.0-12.0) sec APTT 33.4 H (22.0-30.0) sec Sodium 129 L (137-145) mmol/L Chloride 94 L (98-107) mmol/L Carbon Dioxide 20 L (22-30) mmol/L BUN 18 H (7-17) mg/dL Glucose 164 H (74-99) mg/dL POC Glucose (mg/dL) (75-99) mg/dL Plasma Lactic Acid Gaurav (0.7-2.0) mmol/L Total Bilirubin 17.6 H* (0.2-1.3) mg/dL AST 979 H (14-36) U/L ALT 423 H (9-52) U/L Alkaline Phosphatase 746 H (38-126) U/L Total Protein 5.6 L (6.3-8.2) g/dL Albumin 2.9 L (3.5-5.0) g/dL TSH 0.077 L (0.465-4.680) mIU/L Urine Appearance (Clear) Urine Protein (Negative) Urine Blood (Negative) Urine Bilirubin (Negative) Amorphous Sediment (None) /hpf Urine Bacteria (None) /hpf Urine Mucus (None) /hpf 03/31/17 03/31/17 03/31/17 Range/Units 00:22 02:13 06:07 WBC (3.8-10.6) k/uL RBC (3.80-5.40) m/uL Hgb (11.4-16.0) gm/dL Hct (34.0-46.0) % RDW (11.5-15.5) % Plt Count (150-450) k/uL PT (9.0-12.0) sec APTT (22.0-30.0) sec Sodium (137-145) mmol/L Chloride (98-107) mmol/L Carbon Dioxide (22-30) mmol/L BUN (7-17) mg/dL Glucose (74-99) mg/dL POC Glucose (mg/dL) 183 H (75-99) mg/dL Plasma Lactic Acid Gaurav 2.5 H* (0.7-2.0) mmol/L Total Bilirubin (0.2-1.3) mg/dL AST (14-36) U/L ALT (9-52) U/L Alkaline Phosphatase (38-126) U/L Total Protein (6.3-8.2) g/dL Albumin (3.5-5.0) g/dL TSH (0.465-4.680) mIU/L Urine Appearance Cloudy H (Clear) Urine Protein 2+ H (Negative) Urine Blood Small H (Negative) Urine Bilirubin 4+ H (Negative) Amorphous Sediment Occasional H (None) /hpf Urine Bacteria Rare H (None) /hpf Urine Mucus Rare H (None) /hpf Diabetes panel 03/31/17 Range/Units 00:22 Sodium 129 L (137-145) mmol/L Potassium 4.5 (3.5-5.1) mmol/L Chloride 94 L (98-107) mmol/L Carbon Dioxide 20 L (22-30) mmol/L BUN 18 H (7-17) mg/dL Creatinine 0.80 (0.52-1.04) mg/dL Glucose 164 H (74-99) mg/dL Calcium 8.4 (8.4-10.2) mg/dL AST 979 H (14-36) U/L ALT 423 H (9-52) U/L Alkaline Phosphatase 746 H (38-126) U/L Total Protein 5.6 L (6.3-8.2) g/dL Albumin 2.9 L (3.5-5.0) g/dL Thyroid panel 03/31/17 Range/Units 00:22 TSH 0.077 L (0.465-4.680) mIU/L Calcium panel 03/31/17 Range/Units 00:22 Calcium 8.4 (8.4-10.2) mg/dL Albumin 2.9 L (3.5-5.0) g/dL Pituitary panel 03/31/17 Range/Units 00:22 Sodium 129 L (137-145) mmol/L Potassium 4.5 (3.5-5.1) mmol/L Chloride 94 L (98-107) mmol/L Carbon Dioxide 20 L (22-30) mmol/L BUN 18 H (7-17) mg/dL Creatinine 0.80 (0.52-1.04) mg/dL Glucose 164 H (74-99) mg/dL Calcium 8.4 (8.4-10.2) mg/dL TSH 0.077 L (0.465-4.680) mIU/L Adrenal panel 03/31/17 Range/Units 00:22 Sodium 129 L (137-145) mmol/L Potassium 4.5 (3.5-5.1) mmol/L Chloride 94 L (98-107) mmol/L Carbon Dioxide 20 L (22-30) mmol/L BUN 18 H (7-17) mg/dL Creatinine 0.80 (0.52-1.04) mg/dL Glucose 164 H (74-99) mg/dL Calcium 8.4 (8.4-10.2) mg/dL Total Bilirubin 17.6 H* (0.2-1.3) mg/dL AST 979 H (14-36) U/L ALT 423 H (9-52) U/L Alkaline Phosphatase 746 H (38-126) U/L Total Protein 5.6 L (6.3-8.2) g/dL Albumin 2.9 L (3.5-5.0) g/dL - Imaging CT scan - abdomen: report reviewed, image reviewed Assessment and Plan (1) Colitis Status: Acute (2) Pancytopenia Status: Acute Plan: Patient is currently nonsurgical. Would continue hydration, IV antibiotics, pain control. Oncology to manage pancytopenia. Overall prognosis is poor
[2017-03-31] MEDS: PIPERACILLIN-TAZOBACTAM 3.375 GM in DEXTROSE/WATER 1 50ML.BAG IVPB SCH ×2 (10:14→17:03)
[2017-03-31] MEDS: FAMOTIDINE 20 MG TAB PO SCH ×2 (10:14→22:31)
[2017-03-31] MEDS: FILGRASTIM-SNDZ 480 MCG/0.8 ML SYRINGE SQ SCH (10:18)
[2017-03-31] MEDS: diphenhydrAMINE 50 MG/ML 1 ML VIAL IVP PRN (10:22)
[2017-03-31 12:08] LABS: Glucose,Whole Blood 150 mg/dL (75-99)
--- NOTE | 2017-03-31 12:39 | CONS ---
DATE OF CONSULTATION: 03/31/2017 CHIEF COMPLAINT: Atrial fibrillation. This is a 67-year-old lady who presented to [facility] emergency room with symptoms of not feeling well, abdominal discomfort and weakness. She was found to be in atrial fibrillation for which cardiology had been consulted. She was started on IV Cardizem but converted to sinus rhythm and she is in sinus rhythm. She has metastatic pancreatic cancer and has just received chemotherapy. She has severely elevated bilirubin with evidence of obstructive jaundice, probably related to the metastatic cancer. From cardiac standpoint, she is not a candidate for anticoagulation. She remains in sinus rhythm probably does not require any further cardiac work-up at this time. Past medical history significant for metastatic cancer, diabetes, dyslipidemia, rheumatoid arthritis. Past surgical history is significant for Anita fundoplasty, breast biopsy, removal of left kidney. SOCIAL HISTORY: Nonsmoker. There is no history of EtOH abuse or drug abuse. REVIEW OF SYSTEMS: HEENT: Unremarkable. CARDIAC: As described above. RESPIRATORY: Negative. GI: Significant for abdominal distention, loss of appetite, not feeling well. GENITOURINARY: Negative. Allergy/immunology: Negative. SKIN: Negative. MUSCULOSKELETAL: Significant for arthritis. PSYCHOSOCIAL: Negative. ENDOCRINE: As above. CONSTITUTIONAL: Significant for not feeling well. Rest of the system review is not relevant. On exam, comfortable at rest. Vital signs are stable. There is no jugular venous distention. Chest exam reveals diminished air entry at the bases. Heart exam reveals first and second heart sounds. Irregular rhythm. No murmur. Patient appeared jaundiced. ASSESSMENT: 1. Paroxysmal atrial fibrillation. 2. Metastatic cancer with obstructive jaundice. PLAN: From cardiac standpoint, she does not require any further evaluation at this time. She is not a candidate for anticoagulation. Remains in sinus rhythm rate. Rate is well controlled. If she goes into A. fib again we will start her on intravenous Cardizem. We are going to follow her on an as-needed basis.
[2017-03-31] MEDS ORDERED: DRY MOUTH SPRAY 44.3 SPRAY/44.3 ML SPRAY MUCOUS MEM PRN (14:22)
[2017-03-31] MEDS ORDERED: ARTIFICIAL TEARS-HYPROMELLOSE DROPS 15 ML BTL BOTH EYES PRN (14:22)
[2017-03-31] MEDS ORDERED: SCOPOLAMINE 1.5MG/72HR PATCH TRANSDERM PRN (14:22)
[2017-03-31 17:14] LABS: Glucose,Whole Blood 140 mg/dL (75-99)
--- NOTE | 2017-03-31 18:12 | P.PN ---
Progress Note - Text Consult dictated Impression: 1- Neutropenic sepsis 2- Chemotherapy-induced Myelosupression 3- Metastatic Cancer to liver , likely from Pancreato-billiary origin. S/P Gemzar/Abraxane Chemotherapy (03/21 & 03/28/17) 4- Jaundice > progressed 2nd to sepsis 5- Diffuse Colitis, ? Typhlitis Rec: 1- Broad spectrum antibiotics ordered 2- Add G-CSF 3- Blood cultures pending 4- ID Consult (Dr Kiser) 5- Surgical consult : Stand-by for Typhlitis D/W patient/family
[2017-03-31 20:32] LABS: Glucose,Whole Blood 151 mg/dL (75-99)
[2017-04-01] MEDS: PIPERACILLIN-TAZOBACTAM 3.375 GM in DEXTROSE/WATER 1 50ML.BAG IVPB SCH ×4 (00:38→22:05)
[2017-04-01] MEDS: MORPHINE SULFATE 4 MG/ML SYRINGE IV PRN ×6 (00:56→21:01)
[2017-04-01] MEDS: metroNIDAZOLE-NS PMX 500 MG in SALINE 1 100ML.BAG IVPB SCH ×3 (03:37→18:29)
--- NOTE | 2017-04-01 07:24 | HP ---
DATE OF ADMISSION: REASON FOR ADMISSION: Severe pruritus and uncontrolled pain. HISTORY OF PRESENT ILLNESS: This is a 67-year-old female who was recently diagnosed with metastatic pancreatic cancer comes into the hospital with complaints of intractable pain in her abdomen and pruritus. Patient stated that she was recently diagnosed with cancer, underwent 2 cycles of chemotherapy. Patient says that she has not been feeling well and hence came into the hospital for ongoing care. Patient underwent a CT scan of the abdomen and pelvis in the emergency room and was noted to have a large pancreatic tail mass noted in the left nephrectomy bed, multiple hepatic lesions, diffuse colonic thickening suggestive of inflammatory colitis and the patient was also noted to have moderate right-sided hydroureteronephrosis, which is new. Patient was also noted to have some pelvic ascites that is loculated as well. The patient recently underwent chemotherapy, is noted to be pancytopenic and also noted to have some abnormal lab results including bilirubinemia of 17.6. Patient on questioning states that she did want to be treated in an attempt to buy more time. However with recent chemotherapy and side ( ), patient states that she would rather be comfortable. Patient states that she has got intractable pain, pruritus at this time. Patient was also found to be in atrial fibrillation and converted into normal sinus rhythm at this time. Past medical history includes metastatic pancreatic cancer, diabetes, dyslipidemia, rheumatoid arthritis. Past surgical history includes cholecystectomy, Anita fundoplication, breast biopsy and left nephrectomy. SOCIAL HISTORY: No active smoking. No EtOH or drug abuse reported at this time. REVIEW OF SYSTEMS: Fourteen-point review of system was done. None pertinent other than reported above in the HPI. Home medications include: 1. Atorvastatin. 2. Januvia. 3. Metformin. 4. Docusate. 5. Fentanyl patch. ALLERGIES: No known drug allergies. FAMILY HISTORY: Not pertinent to the current admission. PHYSICAL EXAM: VITALS: Temperature 97.1, heart rate 60, blood pressure 128/60, saturating at 98% on 2 L supplemental oxygen. GENERAL APPEARANCE: Appears jaundiced and states significant pruritus. NECK: Supple. No JVD . HEAD: Atraumatic. Pupils are round and reactive to light and accommodation. Jaundice conjunctiva. LUNGS: Good air movement. No wheezing or rhonchi appreciated. HEART: S1, S2 heard. Regular rate and rhythm. No murmurs appreciated. ABDOMEN: Diffusely tender to palpation. LOWER EXTREMITIES: No edema noted. NEURO EXAM: No focal motor or sensory deficits noted. Laboratory data includes hemoglobin 9.2, hematocrit 26.5, white count 0.7, platelets of 70. Sodium 129, potassium 4.5, chloride 94, bicarb 20. BUN 18, creatinine 0.80. Total bilirubin 17.6. ASSESSMENT AND PLAN: 1. Pancytopenia due to recent chemotherapy. 2. Lactic acidosis likely ( ). 3. Obstructive jaundice due to large tumor load and metastatic pancreatic cancer. 4. Recent diagnosis of metastatic pancreatic cancer. 5. Right side hydroureteronephrosis. 6. 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 7. Acute hepatitis. 8. Moderate protein calorie malnutrition. 9. Hyponatremia, this is likely hypovolemic. 10. Acute abdominal pain. This is likely due to the recent diagnosis. 11. New onset atrial fibrillation. PLAN: After a long discussion with the family, patient and the family would like to be comfortable. Will change goals of care is to comfort measures only. Will move to a private room with hospice consultation. Thereafter patient can be discharged to a hospice home. Patient will be started on appropriate pain medications and anxiety medications thereafter. Patient has multiple episodes of lethargy, is having severe abdominal pain. This was discussed in length with the patient and the family and patient's daughter who is also her POA.
[2017-04-01 07:28] LABS: Anisocytosis Slight; Aty Lym Flag Marked; CH 29.7; CHCM 32.7; Immature Gran Flag Marked; Large Platelets Flag Moderate; MCH 31.9 pg (25.0-35.0); MCHC 34.9 g/dL (31.0-37.0); MCV 91.3 fL (80.0-100.0); Mean Platelet Volume 11.2; RBC 2.41 m/uL (3.80-5.40); RDW 16.8 % (11.5-15.5); WBC (Perox) 0.89
[2017-04-01 07:31] LABS: Glucose,Whole Blood 117 mg/dL (75-99)
[2017-04-01 07:47] LABS: WBC 0.3 k/uL (3.8-10.6)
[2017-04-01 07:48] LABS: HGB 7.7 gm/dL (11.4-16.0)
[2017-04-01 07:51] LABS: Add Differential Manual Differential
[2017-04-01 07:52] LABS: Manual Review Performed; Target Cells Present
--- NOTE | 2017-04-01 07:52 | CONS ---
DATE OF CONSULTATION: REASON FOR CONSULTATION: Metastatic cancer. HISTORY OF PRESENT ILLNESS: Rachel a 67-year-old female well known to our service. She was recently diagnosed with advanced metastatic carcinoma to the liver, thought to likely represent primary pancreatobiliary origin. The patient was started on palliative chemotherapy utilizing combination of Abraxane and gemcitabine, given the first infusion on 03/21 and a second infusion on March 28, 2017. She has tolerated infusion of chemotherapy well. She presented to the hospital with having shaking chills, abdominal pain and severe fatigue. She was found to be profoundly neutropenic with total white blood cell count of 0.7. The patient was hypotensive upon admission to the hospital but responded well to IV fluid resuscitation. CT scan of abdomen and pelvis revealed pancolitis and I was contacted to the emergency room by the emergency room physician, she was started on broad-spectrum antibiotics, IV fluid and Neupogen. When seen this afternoon, the patient was resting comfortably in her hospital bed. Denies any further fever or chills. Has minimal abdominal pain. PAST MEDICAL HISTORY: Adult-onset diabetes mellitus, hyperlipidemia, rheumatoid arthritis, and recently diagnosed metastatic cancer. Renal cell carcinoma diagnosed in 2006, treated with nephrectomy. Past surgical history including Anita fundoplasty, negative breast biopsy and left nephrectomy. SOCIAL HISTORY: The patient is a nonsmoker. Denies any use of alcohol. Family history was noncontributory. CURRENT MEDICATIONS: Reviewed and listed in [employer]. REVIEW OF SYSTEMS: Fever and chills as stated. Severe weakness. No nausea and vomiting. Has moderate abdominal pain. On examination, the patient appeared alert, oriented, icteric. Blood pressure was 126/60, pulse is 60 and regular, respiratory rate was 18, not labored, temperature was 97.1. There are no pathologic cervical, supraclavicular, infraclavicular or axillary lymphadenopathy. Trachea was in midline. Chest was clear with good air exchange bilaterally. Heart sounds were normal, S1 and S2. There was no S3, rubs or murmurs auscultated. Abdomen was soft. The liver and the spleen were not clinically palpable. No masses, tenderness, or inguinal lymphadenopathy. Laboratory studies showed sodium of 129, potassium of 4.5, total bilirubin has increased to 17.6, last study on March 27, 2017 was 12.6. CBC study as indicated above. IMPRESSION: 1. Neutropenic fever and suspected neutropenic sepsis. 2. Chemotherapy-induced myelosuppression. 3. Advanced metastatic carcinoma to liver, likely of pancreatobiliary origin, status post Gemzar and Abraxane chemotherapy. 4. Suspected pancolitis per CT scan. 5. History of rheumatoid arthritis, oral methotrexate stopped when chemotherapy started. 6. Prior history of renal cell carcinoma, not thought to be contributing to current morbidity. RECOMMENDATIONS: 1. Admit to the hospital. 2. Empiric antibiotic regimen was initiated. 3. Consultation with Dr. Rashel butterfield. 4. Surgical consultation for potential surgical need if clinically suspected typhlitis progressed. 5. DCSF in the form Neupogen daily cutaneous injection added. 6. Monitor liver function studies which could have progressed due to sepsis. 7. Rustam follow the patient along with you in the hospital. I discussed assessment and recommendation with the patient and all of her family at the bedside.
[2017-04-01] MEDS: FAMOTIDINE 20 MG TAB PO SCH ×2 (10:00→22:15)
[2017-04-01] MEDS: hydrOXYzine HCL 25 MG TAB PO PRN ×2 (11:20→21:08)
[2017-04-01 11:26] LABS: ALT 276 U/L (9-52); AST 529 U/L (14-36); Alkaline Phosphatase 578 U/L (38-126); Anion Gap 11 mmol/L; Blood Urea Nitrogen 12 mg/dL (7-17); Calcium 7.4 mg/dL (8.4-10.2); Carbon Dioxide 19 mmol/L (22-30); Chloride 103 mmol/L (98-107); Glucose 136 mg/dL (74-99); Non-African American GFR(MDRD) >60 (>60 ml/min/1.73 sqM); Potassium 3.7 mmol/L (3.5-5.1); Sodium 133 mmol/L (137-145)
[2017-04-01 11:35] LABS: Total Bilirubin 16.7 mg/dL (0.2-1.3)
[2017-04-01] MEDS: FILGRASTIM-SNDZ 480 MCG/0.8 ML SYRINGE SQ SCH (15:47)
[2017-04-01] MEDS: VANCOMYCIN 1,000 MG in SODIUM CHLORIDE 0.9% 250 ML IVPB SCH (16:34)
--- NOTE | 2017-04-01 17:12 | P.PN ---
Subjective Principal diagnosis: Colitis Patient states her pain is much improved. She is tolerating clear liquids. Per the family they are requesting outpatient hospice evaluation and no further chemotherapy. Hemodynamically the patient seems to be improved. Objective - Vital Signs Vital signs: Vital Signs Temp 98.4 F 04/01/17 15:00 Pulse 100 04/01/17 16:00 Resp 18 04/01/17 16:00 BP 119/51 04/01/17 15:00 Pulse Ox 94 L 04/01/17 15:00 Intake & Output 03/31/17 04/01/17 04/01/17 18:59 06:59 18:59 Intake Total 240 1999 750 Output Total 1 2 Balance 239 1999 748 Weight 49.895 kg Intake: Intake, IV Titration 1999 450 Amount Piperacillin-Tazobactam 3 50 50 .375 gm In Dextrose/Water 1 50ml.bag @ 12.5 mls/hr IVPB Q8HR [facility] Rx#: [id number] Sodium Chloride 0.9% 1, 750 300 000 ml @ 125 mls/hr IV . Q8H [facility] Rx#:[id number] Vancomycin 1,000 mg In 375 Sodium Chloride 0.9% 250 ml @ 125 mls/hr IVPB Q16H [facility] Rx#:[id number] metroNIDAZOLE-NS PMX 500 625 mg In Saline 1 100ml.bag @ 100 mls/hr IVPB ONCE [facility] Rx#:[id number] metroNIDAZOLE-NS PMX 500 200 100 mg In Saline 1 100ml.bag @ 100 mls/hr IVPB Q8H [facility] Rx#:[id number] Oral 240 300 Output: Urine 1 2 Other: Voiding Method Bedside Commode Bedside Commode Bedside Commode # Voids 3 3 # Bowel Movements 3 - Exam Abdomen: Soft, mild distention, mild diffuse tenderness - Labs CBC & Chem 7: 04/01/17 06:51 04/01/17 10:10 Labs: Abnormal Lab Results - Last 24 Hours (Table) 03/31/17 03/31/17 04/01/17 Range/Units 17:05 20:31 06:51 WBC 0.3 L* (3.8-10.6) k/uL RBC 2.41 L (3.80-5.40) m/uL Hgb 7.7 L D (11.4-16.0) gm/dL Hct 22.0 L (34.0-46.0) % RDW 16.8 H (11.5-15.5) % Plt Count 34 L* D (150-450) k/uL Sodium (137-145) mmol/L Carbon Dioxide (22-30) mmol/L Glucose (74-99) mg/dL POC Glucose (mg/dL) 140 H 151 H (75-99) mg/dL Calcium (8.4-10.2) mg/dL Total Bilirubin (0.2-1.3) mg/dL AST (14-36) U/L ALT (9-52) U/L Alkaline Phosphatase (38-126) U/L Total Protein (6.3-8.2) g/dL Albumin (3.5-5.0) g/dL 04/01/17 04/01/17 Range/Units 07:27 10:10 WBC (3.8-10.6) k/uL RBC (3.80-5.40) m/uL Hgb (11.4-16.0) gm/dL Hct (34.0-46.0) % RDW (11.5-15.5) % Plt Count (150-450) k/uL Sodium 133 L (137-145) mmol/L Carbon Dioxide 19 L (22-30) mmol/L Glucose 136 H (74-99) mg/dL POC Glucose (mg/dL) 117 H (75-99) mg/dL Calcium 7.4 L (8.4-10.2) mg/dL Total Bilirubin 16.7 H* (0.2-1.3) mg/dL AST 529 H (14-36) U/L ALT 276 H (9-52) U/L Alkaline Phosphatase 578 H (38-126) U/L Total Protein 5.0 L (6.3-8.2) g/dL Albumin 2.3 L (3.5-5.0) g/dL Microbiology - Last 24 Hours (Table) 03/31/17 02:13 Urine Culture - Final Urine,Catheterized 03/31/17 00:22 Blood Culture - Preliminary Blood No Growth after 24 hours Assessment and Plan (1) Colitis Narrative/Plan: Continue appropriate antibiotics. Continue liquid diet for now. Further define the patient and her family's desire for extent of care. Will remain on surgical standby. Status: Acute
[2017-04-01 17:44] LABS: Glucose,Whole Blood 165 mg/dL (75-99)
--- NOTE | 2017-04-01 18:12 | P.PN ---
Subjective Principal diagnosis: weakness, pancytopenia from chemotherapy Pt seen in follow up today with multiple family present at bedside. Pt is uncomfortable, her back and bottom hurt from the bed, she denies nausea, YANET, mild abd discomfort, no diarrhea or constipation, puritis is terrible. Objective - Vital Signs Vital signs: Vital Signs Temp 98.4 F 04/01/17 15:00 Pulse 100 04/01/17 16:00 Resp 18 04/01/17 16:00 BP 119/51 04/01/17 15:00 Pulse Ox 94 L 04/01/17 15:00 Intake & Output 03/31/17 04/01/17 04/01/17 18:59 06:59 18:59 Intake Total 240 1999 750 Output Total 1 2 Balance 239 1999 748 Weight 49.895 kg Intake: Intake, IV Titration 1999 450 Amount Piperacillin-Tazobactam 3 50 50 .375 gm In Dextrose/Water 1 50ml.bag @ 12.5 mls/hr IVPB Q8HR [facility] Rx#: [id number] Sodium Chloride 0.9% 1, 750 300 000 ml @ 125 mls/hr IV . Q8H [facility] Rx#:[id number] Vancomycin 1,000 mg In 375 Sodium Chloride 0.9% 250 ml @ 125 mls/hr IVPB Q16H [facility] Rx#:[id number] metroNIDAZOLE-NS PMX 500 625 mg In Saline 1 100ml.bag @ 100 mls/hr IVPB ONCE [facility] Rx#:[id number] metroNIDAZOLE-NS PMX 500 200 100 mg In Saline 1 100ml.bag @ 100 mls/hr IVPB Q8H [facility] Rx#:[id number] Oral 240 300 Output: Urine 1 2 Other: Voiding Method Bedside Commode Bedside Commode Bedside Commode # Voids 3 3 # Bowel Movements 3 - Constitutional General appearance: Present: cooperative, mild distress, thin - EENT Eyes: Present: scleral icterus - Respiratory Respiratory: bilateral: CTA - Cardiovascular Heart sounds: normal: S1, S2 - Peripheral edema leg Peripheral Edema: bilateral: None - Gastrointestinal General gastrointestinal: Present: soft - Integumentary Integumentary: Present: jaundiced - Musculoskeletal Musculoskeletal: Present: generalized weakness, strength equal bilaterally - Psychiatric Psychiatric: Present: A&O x's 3, appropriate affect, intact judgment & insight - Labs CBC & Chem 7: 04/01/17 06:51 04/01/17 10:10 Labs: Abnormal Lab Results - Last 24 Hours (Table) 03/31/17 04/01/17 04/01/17 Range/Units 20:31 06:51 07:27 WBC 0.3 L* (3.8-10.6) k/uL RBC 2.41 L (3.80-5.40) m/uL Hgb 7.7 L D (11.4-16.0) gm/dL Hct 22.0 L (34.0-46.0) % RDW 16.8 H (11.5-15.5) % Plt Count 34 L* D (150-450) k/uL Sodium (137-145) mmol/L Carbon Dioxide (22-30) mmol/L Glucose (74-99) mg/dL POC Glucose (mg/dL) 151 H 117 H (75-99) mg/dL Calcium (8.4-10.2) mg/dL Total Bilirubin (0.2-1.3) mg/dL AST (14-36) U/L ALT (9-52) U/L Alkaline Phosphatase (38-126) U/L Total Protein (6.3-8.2) g/dL Albumin (3.5-5.0) g/dL 04/01/17 04/01/17 Range/Units 10:10 17:41 WBC (3.8-10.6) k/uL RBC (3.80-5.40) m/uL Hgb (11.4-16.0) gm/dL Hct (34.0-46.0) % RDW (11.5-15.5) % Plt Count (150-450) k/uL Sodium 133 L (137-145) mmol/L Carbon Dioxide 19 L (22-30) mmol/L Glucose 136 H (74-99) mg/dL POC Glucose (mg/dL) 165 H (75-99) mg/dL Calcium 7.4 L (8.4-10.2) mg/dL Total Bilirubin 16.7 H* (0.2-1.3) mg/dL AST 529 H (14-36) U/L ALT 276 H (9-52) U/L Alkaline Phosphatase 578 H (38-126) U/L Total Protein 5.0 L (6.3-8.2) g/dL Albumin 2.3 L (3.5-5.0) g/dL Microbiology - Last 24 Hours (Table) 03/31/17 02:13 Urine Culture - Final Urine,Catheterized 03/31/17 00:22 Blood Culture - Preliminary Blood No Growth after 24 hours Assessment and Plan (1) Typhlitis Narrative/Plan: Diet changed to clear liquids then to NPO except ice chips and meds until either WBC improves or abd pain resolves. Status: Acute (2) Elevated transaminase level Narrative/Plan: Secondary to metastatic disease to liver as well as chemo effects. Continue with fluids. Status: Acute (3) Jaundice Narrative/Plan: Cont fluids for now, atarax ordered for puritis. Status: Acute (4) Pancreatic adenocarcinoma Narrative/Plan: Pt s/p day 1 & 8 of her 1st cycle of palliative gemzar and abraxane. Pt has stated that she does not want any more chemotherapy. We discussed with the pt the option for changing to full hospice care now vs continuing some supportive care, ie: GCSF, fluids, abx, to support pt from the effects of chemo and maybe bet her feeling a little better. She will discuss with her family and report decision to Nursing. Status: Acute
[2017-04-01] MEDS: MAG HYDROX/AL HYDROX/SIMETH 30 ML, LIDOCAINE VISCOUS 30 ML, diphenhydrAMINE ELIXIR 75 M... PO SCH ×8 (19:11→22:20)
--- NOTE | 2017-04-01 19:30 | P.PN ---
Subjective REASON FOR ADMISSION: Severe pruritus and uncontrolled pain. HISTORY OF PRESENT ILLNESS: This is a 67-year-old female who was recently diagnosed with metastatic pancreatic cancer comes into the hospital with complaints of intractable pain in her abdomen and pruritus. Patient stated that she was recently diagnosed with cancer, underwent 2 cycles of chemotherapy. Patient says that she has not been feeling well and hence came into the hospital for ongoing care. Patient underwent a CT scan of the abdomen and pelvis in the emergency room and was noted to have a large pancreatic tail mass noted in the left nephrectomy bed, multiple hepatic lesions, diffuse colonic thickening suggestive of inflammatory colitis and the patient was also noted to have moderate right-sided hydroureteronephrosis, which is new. Patient was also noted to have some pelvic ascites that is loculated as well. The patient recently underwent chemotherapy, is noted to be pancytopenic and also noted to have some abnormal lab results including bilirubinemia of 17.6. Patient on questioning states that she did want to be treated in an attempt to buy more time. However with recent chemotherapy and side ( ), patient states that she would rather be comfortable. Patient states that she has got intractable pain, pruritus at this time. Patient was also found to be in atrial fibrillation and converted into normal sinus rhythm at this time. 04/01/17 states to have pruritus abdominal pain is noted one episode of loose stool PHYSICAL EXAM: GENERAL APPEARANCE: Appears jaundiced and states significant pruritus. NECK: Supple. No JVD . HEAD: Atraumatic. Pupils are round and reactive to light and accommodation. Jaundice conjunctiva. LUNGS: Good air movement. No wheezing or rhonchi appreciated. HEART: S1, S2 heard. Regular rate and rhythm. No murmurs appreciated. ABDOMEN: Diffusely tender to palpation. LOWER EXTREMITIES: No edema noted. NEURO EXAM: No focal motor or sensory deficits noted. Objective - Vital Signs Vital signs: Vital Signs Temp 98.4 F 04/01/17 15:00 Pulse 100 04/01/17 16:00 Resp 18 04/01/17 16:00 BP 119/51 04/01/17 15:00 Pulse Ox 94 L 04/01/17 15:00 Intake & Output 04/01/17 04/01/17 04/02/17 06:59 18:59 06:59 Intake Total 1999 750 Output Total 2 Balance 1999 748 Weight 49.895 kg Intake: Intake, IV Titration 2000 450 Amount Piperacillin-Tazobactam 3 50 50 .375 gm In Dextrose/Water 1 50ml.bag @ 12.5 mls/hr IVPB Q8HR [facility] Rx#: [id number] Sodium Chloride 0.9% 1, 750 300 000 ml @ 125 mls/hr IV . Q8H [facility] Rx#:[id number] Vancomycin 1,000 mg In 375 Sodium Chloride 0.9% 250 ml @ 125 mls/hr IVPB Q16H [facility] Rx#:[id number] metroNIDAZOLE-NS PMX 500 625 mg In Saline 1 100ml.bag @ 100 mls/hr IVPB ONCE [facility] Rx#:[id number] metroNIDAZOLE-NS PMX 500 200 100 mg In Saline 1 100ml.bag @ 100 mls/hr IVPB Q8H [facility] Rx#:[id number] Oral 300 Output: Urine 2 Other: Voiding Method Bedside Commode Bedside Commode # Voids 3 3 # Bowel Movements 3 - Labs CBC & Chem 7: 04/01/17 06:51 04/01/17 10:10 Labs: Abnormal Lab Results - Last 24 Hours (Table) 03/31/17 04/01/17 04/01/17 Range/Units 20:31 06:51 07:27 WBC 0.3 L* (3.8-10.6) k/uL RBC 2.41 L (3.80-5.40) m/uL Hgb 7.7 L D (11.4-16.0) gm/dL Hct 22.0 L (34.0-46.0) % RDW 16.8 H (11.5-15.5) % Plt Count 34 L* D (150-450) k/uL Sodium (137-145) mmol/L Carbon Dioxide (22-30) mmol/L Glucose (74-99) mg/dL POC Glucose (mg/dL) 151 H 117 H (75-99) mg/dL Calcium (8.4-10.2) mg/dL Total Bilirubin (0.2-1.3) mg/dL AST (14-36) U/L ALT (9-52) U/L Alkaline Phosphatase (38-126) U/L Total Protein (6.3-8.2) g/dL Albumin (3.5-5.0) g/dL 04/01/17 04/01/17 Range/Units 10:10 17:41 WBC (3.8-10.6) k/uL RBC (3.80-5.40) m/uL Hgb (11.4-16.0) gm/dL Hct (34.0-46.0) % RDW (11.5-15.5) % Plt Count (150-450) k/uL Sodium 133 L (137-145) mmol/L Carbon Dioxide 19 L (22-30) mmol/L Glucose 136 H (74-99) mg/dL POC Glucose (mg/dL) 165 H (75-99) mg/dL Calcium 7.4 L (8.4-10.2) mg/dL Total Bilirubin 16.7 H* (0.2-1.3) mg/dL AST 529 H (14-36) U/L ALT 276 H (9-52) U/L Alkaline Phosphatase 578 H (38-126) U/L Total Protein 5.0 L (6.3-8.2) g/dL Albumin 2.3 L (3.5-5.0) g/dL Microbiology - Last 24 Hours (Table) 03/31/17 02:13 Urine Culture - Final Urine,Catheterized 03/31/17 00:22 Blood Culture - Preliminary Blood No Growth after 24 hours Assessment and Plan Plan: ASSESSMENT AND PLAN: 1. Pancytopenia due to recent chemotherapy. 2. Lactic acidosis 3. Obstructive jaundice due to large tumor load and metastatic pancreatic cancer. 4. Recent diagnosis of metastatic pancreatic cancer. 5. Right side hydroureteronephrosis. 6. 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 7. Acute hepatitis. 8. Moderate protein calorie malnutrition. 9. Hyponatremia, this is likely hypovolemic. 10. Acute abdominal pain. This is likely due to the recent diagnosis. 11. New onset atrial fibrillation. PLAN: After a long discussion with the family, patient and the family would like to be comfortable. reviewed oncology recs Thereafter patient can be discharged to a hospice home. Patient will be started on appropriate pain medications and anxiety medications thereafter.
[2017-04-01 21:13] LABS: Glucose,Whole Blood 146 mg/dL (75-99)
[2017-04-01] MEDS: SODIUM CHLORIDE 0.9% 1,000 ML IV SCH ×6 (22:12→22:14)
[2017-04-01] MEDS ORDERED: ALPRAZolam 0.25 MG TAB PO PRN (22:45)
[2017-04-02] MEDS: MORPHINE SULFATE 4 MG/ML SYRINGE IV PRN ×3 (02:37→09:18)
[2017-04-02] MEDS: diphenhydrAMINE 50 MG/ML 1 ML VIAL IVP PRN ×2 (02:37→08:42)
[2017-04-02] MEDS: PIPERACILLIN-TAZOBACTAM 3.375 GM in DEXTROSE/WATER 1 50ML.BAG IVPB SCH (04:43)
[2017-04-02] MEDS: SODIUM CHLORIDE 0.9% 1,000 ML IV SCH ×2 (05:46)
[2017-04-02 07:59] VITALS: BP 107/52; PULSE 97; RESP 18; TEMP 97.7
[2017-04-02] MEDS: FAMOTIDINE 20 MG TAB PO SCH (08:25)
[2017-04-02] MEDS: FILGRASTIM-SNDZ 480 MCG/0.8 ML SYRINGE SQ SCH (08:26)
[2017-04-02] MEDS: MAG HYDROX/AL HYDROX/SIMETH 30 ML, LIDOCAINE VISCOUS 30 ML, diphenhydrAMINE ELIXIR 75 M... PO SCH ×4 (08:42)
[2017-04-02] MEDS ORDERED: MAG HYDROX/AL HYDROX/SIMETH 30 ML, diphenhydrAMINE ELIXIR 75 MG, LIDOCAINE VISCOUS 30 ML PO SCH ×3 (10:45)
[2017-04-02 11:27] LABS: Glucose,Whole Blood 123 mg/dL (75-99)
[2017-04-02 12:24] LABS: Anisocytosis Slight; Aty Lym Flag Marked; CH 30.4; CHCM 33.6; HCT 22.5 % (34.0-46.0); HDW 2.95; HGB 7.8 gm/dL (11.4-16.0); Large Platelets Flag Slight; MCH 31.4 pg (25.0-35.0); MCHC 34.5 g/dL (31.0-37.0); Mean Platelet Volume 10.3; RBC 2.47 m/uL (3.80-5.40); RDW 17.2 % (11.5-15.5); WBC (Perox) 0.65
[2017-04-02 12:28] LABS: WBC 0.1 k/uL (3.8-10.6)
[2017-04-02 12:56] LABS: Anion Gap 12 mmol/L; Blood Urea Nitrogen 16 mg/dL (7-17); Calcium 7.8 mg/dL (8.4-10.2); Carbon Dioxide 17 mmol/L (22-30); Chloride 104 mmol/L (98-107); Glucose 133 mg/dL (74-99); Non-African American GFR(MDRD) >60 (>60 ml/min/1.73 sqM); Potassium 3.8 mmol/L (3.5-5.1); Sodium 133 mmol/L (137-145)
[2017-04-02 12:58] LABS: Add Differential Manual Differential
[2017-04-02 12:59] LABS: Manual Review Performed; Target Cells Present
--- NOTE | 2017-04-02 16:53 | P.PN ---
Subjective Principal diagnosis: weakness, pancytopenia from chemotherapy Pt seen in follow up today with multiple family present at bedside. Pt is more confused today, she complains of pain in the back and buttocks as well as itching. Objective - Vital Signs Vital signs: Vital Signs Temp 97.7 F 04/02/17 07:00 Pulse 97 04/02/17 08:00 Resp 18 04/02/17 08:00 BP 107/52 04/02/17 07:00 Pulse Ox 93 L 04/02/17 07:00 Intake & Output 04/01/17 04/02/17 04/02/17 18:59 06:59 18:59 Intake Total 750 375 Output Total 2 1 Balance 748 375 -1 Weight 49.895 kg 49.895 kg Intake: Intake, IV Titration 450 375 Amount Piperacillin-Tazobactam 3 25 .375 gm In Dextrose/Water 1 50ml.bag @ 12.5 mls/hr IVPB Q8H [facility] Rx#: [id number] Piperacillin-Tazobactam 3 50 .375 gm In Dextrose/Water 1 50ml.bag @ 12.5 mls/hr IVPB Q8HR [facility] Rx#: [id number] Sodium Chloride 0.9% 1, 300 000 ml @ 125 mls/hr IV . Q8H [facility] Rx#:[id number] Vancomycin 1,000 mg In 250 Sodium Chloride 0.9% 250 ml @ 125 mls/hr IVPB Q16H [facility] Rx#:[id number] metroNIDAZOLE-NS PMX 500 100 100 mg In Saline 1 100ml.bag @ 100 mls/hr IVPB Q8H [facility] Rx#:[id number] Oral 300 Output: Urine 2 1 Other: Voiding Method Bedside Commode Bedside Commode Bedside Commode # Voids 3 3 3 # Bowel Movements 3 1 - Exam Thin, frail, jaundice, alert, confused as she is unable to answer questions appropriately, agitated and visibly uncomfortable, frequent position changes, moaning, no respiratory distress. - Labs CBC & Chem 7: 04/02/17 12:02 04/02/17 12:02 Labs: Abnormal Lab Results - Last 24 Hours (Table) 04/01/17 04/01/17 04/02/17 Range/Units 17:41 20:52 11:19 WBC (3.8-10.6) k/uL RBC (3.80-5.40) m/uL Hgb (11.4-16.0) gm/dL Hct (34.0-46.0) % RDW (11.5-15.5) % Plt Count (150-450) k/uL Sodium (137-145) mmol/L Carbon Dioxide (22-30) mmol/L Glucose (74-99) mg/dL POC Glucose (mg/dL) 165 H 146 H 123 H (75-99) mg/dL Calcium (8.4-10.2) mg/dL 04/02/17 04/02/17 Range/Units 12:02 12:02 WBC 0.1 L* (3.8-10.6) k/uL RBC 2.47 L (3.80-5.40) m/uL Hgb 7.8 L (11.4-16.0) gm/dL Hct 22.5 L (34.0-46.0) % RDW 17.2 H (11.5-15.5) % Plt Count 30 L* (150-450) k/uL Sodium 133 L (137-145) mmol/L Carbon Dioxide 17 L (22-30) mmol/L Glucose 133 H (74-99) mg/dL POC Glucose (mg/dL) (75-99) mg/dL Calcium 7.8 L (8.4-10.2) mg/dL Microbiology - Last 24 Hours (Table) 03/31/17 00:22 Blood Culture - Preliminary Blood No Growth after 48 hours 03/31/17 02:13 Urine Culture - Final Urine,Catheterized Assessment and Plan (1) Typhlitis Status: Acute (2) Elevated transaminase level Status: Acute (3) Jaundice Status: Acute (4) Pancreatic adenocarcinoma Status: Acute Plan: Discussed with family their wishes for the patient. We reviewed the difference between active treatment versus comfort treatment. All questions answered to the halina of my ability. Pt is going home with hospice today, case discussed with nursing and [employer].
--- NOTE | 2017-04-02 19:06 | P.DS ---
Providers Date of admission: 03/31/17 02:55 Attending physician: Martine Donnelly Consults: 03/31/17 03:00 Consult Physician Routine Consulting Provider: Haroldo Engel Consult Reason/Comments: abdominal pain Do you want consulting provider notified?: Yes 03/31/17 03:06 Consult Physician Routine Consulting Provider: Kevin Ramon Consult Reason/Comments: Atrial fibrillation with RVR. Do you want consulting provider notified?: Yes Primary care physician: Tonio Wilson Hospital Course: REASON FOR ADMISSION: Severe pruritus and uncontrolled pain. HISTORY OF PRESENT ILLNESS: This is a 67-year-old female who was recently diagnosed with metastatic pancreatic cancer comes into the hospital with complaints of intractable pain in her abdomen and pruritus. Patient stated that she was recently diagnosed with cancer, underwent 2 cycles of chemotherapy. Patient says that she has not been feeling well and hence came into the hospital for ongoing care. Patient underwent a CT scan of the abdomen and pelvis in the emergency room and was noted to have a large pancreatic tail mass noted in the left nephrectomy bed, multiple hepatic lesions, diffuse colonic thickening suggestive of inflammatory colitis and the patient was also noted to have moderate right-sided hydroureteronephrosis, which is new. Patient was also noted to have some pelvic ascites that is loculated as well. The patient recently underwent chemotherapy, is noted to be pancytopenic and also noted to have some abnormal lab results including bilirubinemia of 17.6. Patient on questioning states that she did want to be treated in an attempt to buy more time. However with recent chemotherapy and side ( ), patient states that she would rather be comfortable. Patient states that she has got intractable pain, pruritus at this time. Patient was also found to be in atrial fibrillation and converted into normal sinus rhythm at this time. 04/01/17 states to have pruritus abdominal pain is noted one episode of loose stool 04/02/17 tenderness reported in her mouth PHYSICAL EXAM: GENERAL APPEARANCE: Appears jaundiced and states significant pruritus. NECK: Supple. No JVD . HEAD: Atraumatic. Pupils are round and reactive to light and accommodation. Jaundice conjunctiva. LUNGS: Good air movement. No wheezing or rhonchi appreciated. HEART: S1, S2 heard. Regular rate and rhythm. No murmurs appreciated. ABDOMEN: Diffusely tender to palpation. LOWER EXTREMITIES: No edema noted. NEURO EXAM: No focal motor or sensory deficits noted. mouth cavity erythme noted diffusely ASSESSMENT AND PLAN: 1. Pancytopenia due to recent chemotherapy. 2. Lactic acidosis 3. Obstructive jaundice due to large tumor load and metastatic pancreatic cancer. 4. Recent diagnosis of metastatic pancreatic cancer. 5. Right side hydroureteronephrosis. 6. 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 7. Acute hepatitis. 8. Moderate protein calorie malnutrition. 9. Hyponatremia, this is likely hypovolemic. 10. Acute abdominal pain. This is likely due to the recent diagnosis. 11. New onset atrial fibrillation. home with hospice complete augmentin for 5 days pain control magic mouth wash mucositis is also suspected . Patient Condition at Discharge: Serious Plan - Discharge Summary New Discharge Prescriptions: New Amoxic-Pot Clav 500-125 mg [Augmentin 500-125 mg] 1 tab PO Q12HR #10 tab No Action sitaGLIPtin [Januvia] 100 mg PO PC-SUPPER Atorvastatin Calcium [Lipitor] 10 mg PO HS metFORMIN HCL [metFORMIN HCL] 1,000 mg PO BID Krill Oil/[place]-3/Dha/Epa [[place]-3 Krill Oil Softgel] 1 cap PO DAILY Docusate [Colace] 100 mg PO HS fentaNYL 25MCG/HR PATCH [Duragesic 25MCG/HR] 1 patch TRANSDERM Q72H Discharge Medication List sitaGLIPtin [Januvia] 100 mg PO PC-SUPPER 07/30/16 [History] Atorvastatin Calcium [Lipitor] 10 mg PO HS 03/01/17 [History] metFORMIN HCL [metFORMIN HCL] 1,000 mg PO BID 03/01/17 [History] Docusate [Colace] 100 mg PO HS 03/31/17 [History] Krill Oil/[place]-3/Dha/Epa [[place]-3 Krill Oil Softgel] 1 cap PO DAILY 03/31/17 [ History] fentaNYL 25MCG/HR PATCH [Duragesic 25MCG/HR] 1 patch TRANSDERM Q72H 03/31/17 [ History] Amoxic-Pot Clav 500-125 mg [Augmentin 500-125 mg] 1 tab PO Q12HR #10 tab [Rx] Patient Instructions/Handouts: Pancreatic Cancer (DC), Ulcerative Colitis (DC) , Neutropenia (DC) Discharge Disposition: HOME WITH HOSPICE
--- NOTE | 2017-04-03 14:33 | CDI ---
In responding to this query, please exercise your independent professional judgment. The [facility] Coding Staff and Clinical Documentation Specialists appreciate your assistance in clarifying documentation, maintaining compliance with coding guidelines, accurately documenting patients condition and capturing severity of illness. The fact that a question is asked does not imply that any particular answer is desired or expected. Communication forms are a method of clarifying documentation and are not made part of the Legal Health Record. Thank you in advance for your clarification. Last Revision, August 2015 Edgar Pandey [address] [place] [address] Documentation Clarification Form Date: 04/03/2017 2:19:00 PM From: Lenore Sierra/Samantha Castaneda Admit Date: 03/31/2017 2:55:00 AM Patient Name: Rachel Khan Visit Number: [id number] Discharge Date: Dr. Narendra Osorio Neutropenic sepsis is documented in the ED report and in Dr. Wallace's consult note and progress note. Patient history/risk factors: Patient has pancreatic cancer with metastasis to the liver. Has had recent chemotherapy. Clinical Indicators: Shaking, chills, abdominal pain, severe fatigue and neutropenia. Lab findings: WBC on admission 0.7, lactic acid on admission 2.5. Vital Signs: T. 97.5, R. 20, P. 123, BP 83/52 Treatment: IV Ceftriaxone Sodium and IV Piperacillin/Tazobactam In your professional opinion, can you please clarify if neutropenic sepsis was Ruled In or Ruled Out? Other Unable to determine Please document in your progress notes and discharge summary in order to capture severity of illness and risk of mortality. Include clinical findings that support your diagnosis. FYI: Press F11 to launch patient chart. ___x__ Place X here if this finding has no clinical significance, is not applicable or if you are not able to provide any additional documentation. [place]
== END 2017-04-02 12:55 | disposition hospice, home (50) | DRG 808 ==
LOC: EEVIPCON 00:06 → EC 00:06 → 6SEL 02:55 → 5MS5E 18:10
PROVIDERS: ADMIT Hospitalist; ATTEND Hospitalist
DX: D61.810 Antineoplastic chemotherapy induced pancytopenia (principal); K83.1 Obstruction of bile duct; K72.00 Acute and subacute hepatic failure without coma; R18.0 Malignant ascites; E44.0 Moderate protein-calorie malnutrition; C25.9 Malignant neoplasm of pancreas, unspecified; E87.2 Acidosis; C78.7 Secondary malignant neoplasm of liver and intrahepatic bile duct; K35.80 Unspecified acute appendicitis; N13.30 Unspecified hydronephrosis; E87.1 Hypo-osmolality and hyponatremia; Z68.1 Body mass index [BMI] 19.9 or less, adult; I48.0 Paroxysmal atrial fibrillation; E86.0 Dehydration; E11.9 Type 2 diabetes mellitus without complications; E78.5 Hyperlipidemia, unspecified; E86.1 Hypovolemia; F41.9 Anxiety disorder, unspecified; K12.30 Oral mucositis (ulcerative), unspecified; K52.9 Noninfective gastroenteritis and colitis, unspecified; L29.9 Pruritus, unspecified; M06.9 Rheumatoid arthritis, unspecified; M54.9 Dorsalgia, unspecified; G89.3 Neoplasm related pain (acute) (chronic); Z79.84 Long term (current) use of oral hypoglycemic drugs; Z79.899 Other long term (current) drug therapy; Z51.5 Encounter for palliative care; Z85.528 Personal history of other malignant neoplasm of kidney; Z87.891 Personal history of nicotine dependence
CPT/HCPCS: 36415; 71010; 74176; 80048; 80053; 81001; 82150; 82550; 82553; 83605; 83690; 83735; 84443; 84484; 85025; 85610; 85730; 87040; 87086; 93005; 96365; 96366; 96368; 96375; 99291